=== PATIENT | female | born 1995 | race Caucasian/White ===

== ENCOUNTER 2021-04-04 14:33 | Outpatient (REF) | payer OTHER, SELFPAY ==
[2021-04-04 15:16] LABS: Glucose Urine UA NEG (NEG); Leukocyte Esterase Urine NEG (NEG); Nitrite Urine NEG (NEG); PH 6.5 (5.0-8.0); Specific Gravity - Urine <= 1.005 (1.005-1.025); Urine Blood NEG (NEG); Urine Ketones NEG (NEG); Urine Protein NEG (NEG-TRACE)
[2021-04-04 15:18] LABS: Appearance Urine CLEAR; Color Urine YELLOW
== END 2021-04-04 14:34 | disposition home or self-care (01) ==
LOC: HO.LAB 14:33
PROVIDERS: PCP Internal Medicine; Visit Provider Internal Medicine
DX: R30.0 Dysuria (principal)
CPT/HCPCS: 81003

== ENCOUNTER 2022-09-27 09:30 | Outpatient (REF) | payer OTHER, SELFPAY ==
[2022-09-27 11:52] LABS: Alanine Aminotransferase 20 U/L (0-31); Albumin Level 4.2 g/dL (3.5-5.0); Alkaline Phosphatase 46 U/L (39-117); Anion Gap 12 (12-20); Aspartate Amino Transferase 16 U/L (5-31); Bilirubin Total 0.6 mg/dL (0.0-1.0); Blood Urea Nitrogen 11 mg/dL (9-16); Calcium 9.5 mg/dL (8.4-10.2); Carbon Dioxide 25 mmol/L (22-29); Chloride 105 mmol/L (96-108); Cholesterol 158 mg/dL; Estimated Glomerular Filt Rate > 60; Glucose Fasting 77 mg/dL (60-99); HDL Cholesterol 46 mg/dL; LDL Cholesterol Calculated 92 mg/dl; Potassium 4.5 mmol/L (3.3-5.1); Sodium 137 mmol/L (135-145); Thyroid Stimulating Hormone 1.17 uIU/mL (0.32-4.0); Total Protein 6.4 g/dL (6.5-8.0); Triglycerides 100 mg/dL
== END 2022-09-27 09:31 | disposition home or self-care (01) ==
LOC: HO.LAB 09:30
PROVIDERS: PCP Internal Medicine; Visit Provider Internal Medicine
DX: Z00.00 Encounter for general adult medical examination without abnormal findings (principal); R53.83 Other fatigue; E78.5 Hyperlipidemia, unspecified; R30.0 Dysuria
CPT/HCPCS: 36415; 80053; 80061; 84443

== ENCOUNTER 2022-12-16 07:25 | Outpatient (REF) | payer OTHER, SELFPAY ==
[2022-12-16 07:59] LABS: Appearance Urine Cloudy; Color Urine Yellow; Glucose Urine UA Negative (Negative); Leukocyte Esterase Urine Moderate (2+) (Negative); Nitrite Urine Positive (Negative); PH 5.5 (5.0-9.0); UMIC TRIGGER UA YES; Urine Blood Large (3+) (Negative); Urine Ketones Negative (Negative); Urine Protein 100 (2+) mg/dL (Neg-Trace)
[2022-12-16 08:05] LABS: Bacteria Urine 4+ (None Seen); RBC Urine >20 /HPF (0-2); WBC Urine >50 /HPF (0-5)
== END 2022-12-16 07:26 | disposition home or self-care (01) ==
LOC: HO.LAB 07:25
PROVIDERS: PCP Internal Medicine; Visit Provider Internal Medicine
DX: R30.0 Dysuria (principal)
CPT/HCPCS: 81001

== ENCOUNTER 2023-07-11 10:39 | Outpatient (AMB) | payer OTHER, SELFPAY ==
--- NOTE | 2023-07-11 10:41 | A.OFFPC_ITS ---
Vital Signs 07/11/23 10:42 Height 5 ft 1 in Weight 111 lb BMI 21.0 BP 110/72 Blood Pressure Location Lt brachial Position Sitting Intake Visit Reasons: trouble eating dairy Intake Note: Patient here c/o trouble eating dairy Stone Derrickman And Rigger Required: No Accompanied by: Self / Same As Patient Allergies No Known Allergies Allergy (Verified 07/11/23 10:55) Medication List - Last Reconciled 07/11/23 by Stephanie Evans MD No Known Home Meds Tobacco use date assessed: 04/18/23 Dental Screening Dental Screen Date: 07/11/23 Did you have a dental visit in the last 12 months?: Yes Did you have a dental problem in the last 6 months where you did not have access to dental care?: No Was dental information given to patient?: Patient has dentist HPI HPI Comments History of Present Illness Details This is a 27-year-old female that complains of nausea, abdominal bloating and pain and occasionally diarrhea that happens when eating dairy products. This has relieved when stopping in dairy products. No fever. No other associated symptom. [facility] Medical History (Updated 07/11/23 @ 11:03 by Stephanie Evans MD) History of gestational diabetes Skin lesion Upper respiratory tract infection Surgical History History of foot surgery History of wisdom tooth extraction Family History Father Hypertension Mother In good health Maternal Grandfather Lung cancer Paternal Grandmother Ovarian cancer Diabetes Paternal Grandfather No problems noted. Maternal Grandmother Stroke Family/Other FH: mental illness Brother No problems noted. Brother No problems noted. Son No problems noted. Daughter No problems noted. Other Mental health problem Social History Housing: House Alcohol intake: never Patient Tobacco Use Status: Former Tobacco user Tobacco use type: Cigarette Cigarettes Per Day: 1 e-Cigarette/Vaping Use: Currently Using Second Hand Smoke Exposure: Yes service: No Current occupational status: unemployed Cognitive needs: No Hearing needs: No Vision needs: No Questionnaire Thrive Questionnaire Date Thrive assessed: 01/18/23 JOSE FRANCISCO-7 AMB Questionnaire JOSE FRANCISCO-7 Date JOSE FRANCISCO - 7 assessed: 04/18/23 Source: Developed by Drs. Fadi Miller, Colleen Grullon, [place] and colleagues, with an educational macarena from [employer]. Review of Systems Const All systems reviewed & are unremarkable except as noted in HPI and below Eyes Reports no additional complaints, Denies change in vision and Denies other visual disturbances Card Denies chest pain at rest, Denies chest pain with activity, Denies edema, Denies irregular heart rhythm, Denies claudication, Denies dyspnea, Denies dyspnea on exertion, Denies orthopnea, Denies paroxysmal nocturnal dyspnea and Denies slow heart rate Resp Denies cough, Denies dyspnea and Denies dyspnea on exertion GI Reports abdominal pain, Reports bloating, Denies change in bowel habits, Denies excessive flatus, Reports diarrhea, Reports nausea and Denies vomiting Denies urinary incontinence, Denies urinary hesitancy and Denies urinary urgency Musc Denies abnormal gait, Denies atrophy, Denies deformity and Denies limited range of motion Skin/Breast Denies bleeding lesions, Denies changing lesions and Denies rash Neuro Denies abnormal gait and Denies lack of coordination Physical exam (Primary Care) Vital Signs: Last Vital Signs BP 110/72 07/11/23 10:42 BMI result Body Mass Index 21.0 Tobacco/Smoking Status: Tobacco use Status Tobacco use date assessed 04/18/23 07/11/23 10:48 Patient Tobacco Use Status Former Tobacco user 07/11/23 10:48 Tobacco use type Cigarette 07/11/23 10:48 e-Cigarette/Vaping Use Currently Using 07/11/23 10:48 Thrive Assessment: Date of Thrive Assessment Date Thrive assessed 01/18/23 07/11/23 10:48 Eyes General: appearance normal, both eyes and all related structures Eyelids: Yes eyelids normal Conjunctivae: conjunctivae normal Neck Neck: Yes normal visual inspection and Yes supple Resp Effort & Inspection: normal respiratory effort Auscultation: clear to auscultation bilaterally Cardio Jugular venous distension: no JVD Rate: regular rate Rhythm: regular rhythm Heart sounds: S1 normal heart sound present and S2 normal heart sound present Extrem General: Yes full ROM Assessment and Plan Assessment & Plan (1) Lactose intolerance: Code(s): E73.9 - Lactose intolerance, unspecified Plan: Order stool ph and RAST. Orders: Orders Calprotectin, Fecal Today E73.9 - Lactose intolerance, unspecified pH stool Today E73.9 - Lactose intolerance, unspecified Rast Allergen Today T78.40XA - Allergy, unspecified, initial encounter Coding Level of Care Code Est Pt Level 3 (55714) Diagnoses Lactose intolerance E73.9 Time Spent (min) 19
[2023-07-11 10:42] VITALS: BP 110/72; BMI 21.0
== END 2023-07-11 11:07 | disposition home or self-care (01) ==
PROVIDERS: PCP Internal Medicine; Visit Provider Internal Medicine
DX: E73.9 Lactose intolerance, unspecified (principal)
CPT/HCPCS: 99213

== ENCOUNTER 2023-07-31 08:28 | Outpatient (REF) | payer OTHER, SELFPAY | END 2023-07-31 08:29 | disposition home or self-care (01) | LOC: HO.LAB 08:28 | PROVIDERS: PCP Internal Medicine; Visit Provider Internal Medicine | DX: T78.40XA Allergy, unspecified, initial encounter (principal) | CPT/HCPCS: 36415; 86003 ==

== ENCOUNTER 2023-10-15 08:29 | Outpatient (AMB) | payer OTHER, SELFPAY ==
--- NOTE | 2023-10-15 08:37 | A.OFFVIS_ITS ---
Intake Vital Signs 10/15/23 08:43 Height 5 ft 1 in Weight 108 lb BMI 20.4 BP 111/54 L Blood Pressure Location Lt brachial Position Right Lateral Pulse 71 Intake Visit Reasons: Change in Bowels Intake Note: Patient follow up for change of bowels. Patient cc: abdominal pain /both side, acid reflex, constipation on and off, and denies any other GI issues. Marketing Support Specialist Required: No Accompanied by: Self / Same As Patient Allergies No Known Allergies Allergy (Verified 10/15/23 08:36) Medication List - Last Reconciled 10/15/23 by Divine Butt PA-C No Known Home Meds HPI HPI Comments History of Present Illness Details A 28 y/o female with thinking for years she had a dairy allergy- she was getting period like cramps- she has loose stool , not diarrhea- - not everytime-but most time-she worries about having Crohn No family history of IBD Bloating/gas dietary modifications not beneficial She is stressed, a bit-she has 2 young children and a 17 y/o foster daughter- going well-however still stressful. Her appetite is good, she has always been thin, no nausea, vomiting, hematemesis, hematochezia fever or chills PFSH Medical History Skin lesion Upper respiratory tract infection History of gestational diabetes Surgical History History of foot surgery History of wisdom tooth extraction Family History Father Hypertension Mother In good health Maternal Grandfather Lung cancer Paternal Grandmother Ovarian cancer Diabetes Paternal Grandfather No problems noted. Maternal Grandmother Stroke Family/Other FH: mental illness Brother No problems noted. Brother No problems noted. Son No problems noted. Daughter No problems noted. Other Mental health problem Social History Housing: House Alcohol intake: never Patient Tobacco Use Status: Former Tobacco user Tobacco use type: Cigarette Cigarettes Per Day: 1 e-Cigarette/Vaping Use: Currently Using Second Hand Smoke Exposure: Yes service: No Current occupational status: unemployed Cognitive needs: No Hearing needs: No Vision needs: No Review of Systems Const All systems reviewed & are unremarkable except as noted in HPI and below Card Denies chest pain and Denies dyspnea Resp Denies dyspnea GI Reports bloating, Denies hematochezia and Reports loose stools Denies abnormal menses Physical Exam Vital Signs: Last Vital Signs Pulse 71 10/15/23 08:43 BP 111/54 L 10/15/23 08:43 BMI result Body Mass Index 20.4 Const General: cooperative, comfortable and no acute distress Nutritional Appearance: thin Orientation/consciousness: patient oriented x3 Limitations: no limitations Eyes Sclerae: sclerae normal Resp Effort & Inspection: normal respiratory effort and able to speak in complete sentences Auscultation: clear to auscultation bilaterally, no rales, no rhonchi and no wheezes Cardio Rate: regular rate Rhythm: regular rhythm Heart sounds: S1 normal heart sound present and S2 normal heart sound present Skin General skin exam: no rashes or lesions noted Neuro General: patient oriented x3 Extrem General: Yes full ROM Psych Appearance: grossly normal and well kempt Mental Status: mental status grossly normal Speech and movement: Normal speech and movement present and Clear speech present Affect: Anxious affect present Attitude: cooperative Thought process: Normal thought process present Thought content: Normal thought content present Assessment & Plan Assessment & Plan (1) Change in bowel habits: Comment: Very pleasant somewhat anxious 28-year-old Symptoms somewhat vague Will monitor and re-evaluate Code(s): R19.4 - Change in bowel habit (2) Bloating: Code(s): R14.0 - Abdominal distension (gaseous) Plan: FODMAP Simethicone (3) Chronic RLQ pain: Comment: Intermittent, vague, right lower quadrant pain Code(s): R10.31 - Right lower quadrant pain; G89.29 - Other chronic pain (4) History of kidney stones: Code(s): Z87.442 - Personal history of urinary calculi Plan Labs assess gluten markers, sed rate, ESR Stool sherine U/S Fodmap Simethicone Orders: Orders Calprotectin, Fecal Today R19.7 - Diarrhea, unspecified Endomysial IgA rflx Titer Today R19.4 - Change in bowel habit, T78.40XA - Allergy, unspecified, initial encounter Erythrocyte Sedimentation Rate Today R19.7 - Diarrhea, unspecified C Reactive Protein Today R19.4 - Change in bowel habit HCG Quantitative Today R14.0 - Abdominal distension (gaseous) US abdomen complete Today G89.29 - Other chronic pain, R10.31 - Right lower quadrant pain, R14.0 - Abdominal distension (gaseous), Z87.442 - Personal history of urinary calculi Complete Blood Count Auto Diff Today K52.9 - Noninfective gastroenteritis and c olitis, unspecified Comprehensive Met. Panel Today K58.9 - Irritable bowel syndrome without diarrhea Transglutaminase IgA Today R19.7 - Diarrhea, unspecified Thyroid Stimulating Hormone Today R19.8 - Other specified symptoms and signs involving the digestive system and abdomen Medications: New simethicone (Gas Relief (simethicone)) 125 mg PO TID-QID PRN 90 tabs 2RF abdominal distention Patient Instructions: She will monitor symptoms Labs assess gluten markers, sed rate, ESR Stool sherine- U/S-for further eval may be low yield however negative may be reassured Fodmap reviewed, Simethicone, likely be beneficial Encouraged to call with any questions or concerns Appreciate the opportunity assist in the care pleasant patient Will follow-up after the holidays Coding Level of Care Code New Pt Level 3 (68344) Diagnoses Change in bowel habits R19.4 Bloating R14.0 Chronic RLQ pain R10.31; G89.29 History of kidney stones Z87.442 Time Spent (min) 30
[2023-10-15 08:43] VITALS: BP 111/54; PULSE 71; BMI 20.4
== END 2023-10-15 09:24 | disposition home or self-care (01) ==
PROVIDERS: PCP Internal Medicine; Visit Provider Physician Assistant
DX: R19.4 Change in bowel habit (principal); R14.0 Abdominal distension (gaseous); R10.31 Right lower quadrant pain; G89.29 Other chronic pain; Z87.442 Personal history of urinary calculi
CPT/HCPCS: 99203

== ENCOUNTER → 2023-10-15 08:29 | Outpatient (BNVA) | payer OTHER, SELFPAY | PROVIDERS: PCP Internal Medicine; Visit Provider Physician Assistant ==

== ENCOUNTER 2023-10-22 11:36 | Outpatient (REF) | payer OTHER, SELFPAY ==
[2023-10-22 12:00] LABS: MANUAL DIFF FLAG NO
[2023-10-22 12:37] LABS: Basophils Absolute Auto 0.1 X10*3/uL (0.0-0.2); Basophils Percent Auto 0.8 % (0-2); Eosinophils Absolute Auto 0.1 X10*3/uL (0.0-0.4); Eosinophils Percent Auto 1.1 % (0-4); Hematocrit 36.8 % (37.0-47.0); Hemoglobin 13.1 g/dl (12.0-16.0); Imm Gran Abs Auto 0.01 X10*3/uL (0.00-0.03); Imm Gran Pct Auto 0.2 % (0.0-0.4); Lymphocytes Percent Auto 32.6 % (20-40); Mean Corpuscular HGB Conc 35.6 g/dl (31.0-35.0); Mean Corpuscular Hemoglobin 30.8 pg (27.0-33.0); Mean Corpuscular Volume 86.6 fL (80.0-98.0); Mean Platelet Volume 9.2 fL (9.4-12.3); Monocytes Absolute Auto 0.6 X10*3/uL (0.1-1.2); Monocytes Percent Auto 9.4 % (2-11); Neutrophils Absolute Auto 3.5 x10*3/uL (2.0-8.3); Neutrophils Percent Auto 55.9 % (45-73); Platelet Count 257 X10*3/uL (160-400); Red Blood Count 4.25 X10*6/uL (4.20-5.50); Red Cell Distribution Width 11.8 % (11.0-16.0); White Blood Count 6.3 X10*3/uL (4.8-10.8)
[2023-10-22 13:21] LABS: Alanine Aminotransferase 16 U/L (0-31); Albumin Level 4.4 g/dL (3.5-5.0); Alkaline Phosphatase 52 U/L (39-117); Anion Gap 11 (12-20); Aspartate Amino Transferase 17 U/L (5-31); Bilirubin Total 0.7 mg/dL (0.0-1.0); Blood Urea Nitrogen 15 mg/dL (9-16); C Reactive Protein < 0.04 mg/dL (< or = 0.50); Calcium 9.5 mg/dL (8.4-10.2); Carbon Dioxide 27 mmol/L (22-29); Chloride 104 mmol/L (96-108); Estimated Glomerular Filt Rate > 60; Glucose Random 91 mg/dL (60-115); Potassium 4.1 mmol/L (3.3-5.1); Sodium 138 mmol/L (135-145); Total Protein 6.9 g/dL (6.5-8.0)
[2023-10-22 13:23] LABS: Erythrocyte Sedimentation Rate 5 MM/HR (0-20)
[2023-10-22 13:35] LABS: HCG Quantitative < 2 mIU/mL; Thyroid Stimulating Hormone 0.67 uIU/mL (0.32-4.0)
[2023-10-24 15:49] LABS: Transglutaminase IgA <1.0 U/mL
[2023-10-25 13:58] LABS: Endomysial IgA Antibody Negative (Negative)
[2023-10-28 19:24] LABS: Calprotectin, Fecal 8 mcg/g
== END 2023-10-22 11:37 | disposition home or self-care (01) ==
LOC: HO.LAB 11:36
PROVIDERS: PCP Internal Medicine; Visit Provider Physician Assistant
DX: R19.4 Change in bowel habit (principal); T78.40XA Allergy, unspecified, initial encounter; R14.0 Abdominal distension (gaseous); R19.8 Other specified symptoms and signs involving the digestive system and abdomen; K52.9 Noninfective gastroenteritis and colitis, unspecified
CPT/HCPCS: 36415; 80053; 83993; 84443; 84702; 85025; 85652; 86140; 86231; 86364

== ENCOUNTER 2023-11-02 23:42 | Emergency (ER) | payer OTHER, SELFPAY ==
--- NOTE | ~2023-11-02 | CT_ITS ---
EXAMINATION: CT ABDOMEN AND PELVIS WITHOUT CONTRAST CLINICAL INFORMATION: Left sided pain with history of stones. COMPARISON: None available. TECHNIQUE: Multidetector volumetric imaging was performed from the superior aspect of the liver through the pubic symphysis. Sagittal and coronal reformatted images were obtained on the technologist's workstation. This CT examination was performed using dose optimization techniques as appropriate, variously including the following: *Automated exposure control *Adjustment of mA and/or kV according to patient size (this includes techniques or standardized protocols for targeted exams where dose is matched to indication/reason for exam; i.e. extremities or head) *Use of iterative reconstruction technique DLP: 329 mGy-cm FINDINGS: LUNG BASES: The visualized lung bases are unremarkable. LIVER, GALLBLADDER, AND BILIARY TREE: The liver is normal in size, shape, and attenuation. No focal hepatic lesion or biliary ductal dilatation is present. The gallbladder is unremarkable with no evidence of radiopaque gallstones, gallbladder wall thickening, or obvious pericholecystic inflammatory changes. PANCREAS: Unremarkable. SPLEEN: Unremarkable. ADRENAL GLANDS: Unremarkable. KIDNEYS AND URETERS: The kidneys are normal in size, shape, and attenuation. No hydronephrosis, hydroureter, or calculi seen. No perinephric stranding. BLADDER: Unremarkable. GASTROINTESTINAL TRACT: No intestinal obstruction or inflammation. No evidence of appendicitis. ABDOMINAL WALL: No significant hernia is appreciated. LYMPH NODES: Normal. VASCULAR: Unremarkable. PELVIC VISCERA: Uterus and adnexa unremarkable. Physiologic follicle in the left ovary. OSSEOUS STRUCTURES: Unremarkable. CT/CT abdomen pelvis wo IV con IMPRESSION: * No urinary calculi or hydronephrosis. * No acute findings within the abdomen or pelvis to explain the patient's symptomatology. Fleischner guidelines were followed.
[2023-11-03] VITALS: BP 132/46; PULSE 74; RESP 16; O2SAT 100; BMI 21.7
[2023-11-03 00:10] VITALS: TEMP 36.9
--- NOTE | 2023-11-03 00:11 | PC.NURSE ---
pt declined blood work at this time
--- NOTE | 2023-11-03 00:27 | ED.ABDPAIN ---
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 had history of ovarian cyst and kidney stone in the past complaining of worsening of the pain after intercourse tonight pain is mostly upper abdomen no nausea no vomiting no fever no urinary symptoms patient almost passed out because of the pain no vaginal bleed Related Data Previous Rx's Medication Instructions Recorded simethicone 125 mg chewable tablet 125 mg PO TID-QID PRN abdominal 10/15/23 (Gas Relief (simethicone)) distention #90 tabs dicyclomine 20 mg tablet 20 mg PO Q8-10H PRN abdominal 11/03/23 pain #20 tabs ondansetron 4 mg disintegrating 4 mg PO Q8H PRN nausea and 11/03/23 tablet vomiting #14 tabs Allergies Allergy/AdvReac Type Severity Reaction Status Date / Time No Known Allergies Allergy Verified 10/15/23 08:36 Review of Systems Review of Systems Yes all other systems are reviewed and are negative PMF Past Medical History Medical History Skin lesion Upper respiratory tract infection History of gestational diabetes Surgical History History of foot surgery History of wisdom tooth extraction Family History Family History Father Hypertension Mother In good health Maternal Grandfather Lung cancer Paternal Grandmother Ovarian cancer Diabetes Paternal Grandfather No problems noted. Maternal Grandmother Stroke Family/Other FH: mental illness Brother No problems noted. Brother No problems noted. Son No problems noted. Daughter No problems noted. Other Mental health problem Social History Social History Housing: House Alcohol intake: never Patient Tobacco Use Status: Former Tobacco user Tobacco use type: Cigarette Cigarettes Per Day: 1 Smoked in Last 30 Days: No e-Cigarette/Vaping Use: Currently Using Second Hand Smoke Exposure: Yes Use of substances other than those prescribed or required for medical reasons: No Substance Use Type: Marijuana Advance Directives: No Advance Directives Information Provided: No Patient : No service: No Current occupational status: unemployed Cognitive needs: No Hearing needs: No Vision needs: No Physical Exam ED Vital Signs: Vital Signs - 24 hr 11/03/23 00:00 11/03/23 00:10 Temperature 98.5 F Pulse Rate 74 Respiratory Rate 16 Blood Pressure 132/46 L Pulse Oximetry 100 Oxygen Delivery Method Room Air BMI result Body Mass Index 21.7 Appearance: Alert. Oriented X3. No acute distress. Eyes: No pallor or icterus ENT: Pharynx normal. Oral Mucosa moist Neck: Normal inspection. Neck supple. CVS: Normal heart rate and rhythm. Pulses normal. Respiratory: No respiratory distress. Equal air entry bilateral, no wheezing/rales/rhonchi Abdomen: Soft , tenderness mid abdomen no rebound tenderness or guarding. Bowel sounds are present, no mass palpable, no CVA tenderness Skin: Skin warm and dry. Normal skin color. Normal skin turgor. Neuro: Oriented X 3. Medical Decision Making Medical Decision Making [facility] Narrative: Patient with chronic pain likely IBS S patient is most severe pain with history of kidney stone will do a CT scan - I received sign-out from Dr. Bethea, CT scan does not show any acute abnormalities., No kidney stone - patient receive an additional dose of antiemetics, Compazine Differential Diagnosis Differential Diagnoses: The differential diagnosis associated with the presentation includes IBS/gallstones/kidney stone/ovarian cyst Admission/Observation Consideration of admission/observation: Escalation of care including admission/observation considered Lab Data [facility] Lab Attestation statement: I reviewed the patient's lab results. 11/03/23 00:50 11/03/23 00:50 Labs: Lab Results 11/03/23 Range/Units 00:50 WBC 8.3 (4.8-10.8) X10*3/uL RBC 4.14 L (4.20-5.50) X10*6/uL Hgb 12.5 (12.0-16.0) g/dl Hct 36.0 L (37.0-47.0) % MCV 87.0 (80.0-98.0) fL MCH 30.2 (27.0-33.0) pg MCHC 34.7 (31.0-35.0) g/dl RDW 11.7 (11.0-16.0) % Plt Count 193 (160-400) X10*3/uL MPV 9.3 L (9.4-12.3) fL Immature Gran % (Auto) 0.2 (0.0-0.4) % Neut % (Auto) 66.9 (45-73) % Lymph % (Auto) 23.3 (20-40) % Ramsey % (Auto) 7.4 (2-11) % Eos % (Auto) 1.5 (0-4) % Baso % (Auto) 0.7 (0-2) % Lymph # (Auto) 1.9 (1.2-4.9) X10*3/uL Ramsey # (Auto) 0.6 (0.1-1.2) X10*3/uL Eos # (Auto) 0.1 (0.0-0.4) X10*3/uL Baso # (Auto) 0.1 (0.0-0.2) X10*3/uL Abs Immat Gran (auto) 0.02 (0.00-0.03) X10*3/uL Absolute Neuts (auto) 5.5 (2.0-8.3) x10*3/uL Absolute Nucleated RBC 0.000 (0.0-0.012) X10*3/uL Nucleated RBC % (auto) 0.0 (0.0-0.2) /100WBC Sodium 138 (135-145) mmol/L Potassium 4.1 (3.3-5.1) mmol/L Chloride 107 (96-108) mmol/L Carbon Dioxide 27 (22-29) mmol/L Anion Gap 8 L (12-20) BUN 12 (9-16) mg/dL Creatinine 0.75 (0.5-1.4) mg/dL Estim Creat Clear Calc 82.7 Estimated GFR > 60 Random Glucose 102 (60-115) mg/dL Calcium 9.1 (8.4-10.2) mg/dL Total Bilirubin 0.4 (0.0-1.0) mg/dL AST 17 (5-31) U/L ALT 12 (0-31) U/L Alkaline Phosphatase 49 (39-117) U/L Total Protein 6.6 (6.5-8.0) g/dL Albumin 4.3 (3.5-5.0) g/dL Lipase 27 (8-78) U/L Urine Color Yellow Urine Appearance Clear Urine pH 7.0 (5.0-9.0) Ur Specific Homer 1.015 (1.005-1.025) Urine Protein Negative (Neg-Trace) mg/dL Urine Glucose (UA) Negative (Negative) mg/dL Urine Ketones Negative (Negative) mg/dL Urine Blood Negative (Negative) Urine Nitrite Negative (Negative) Ur Leukocyte Esterase Negative (Negative) Urine Test NEGATIVE (NEGATIVE) Radiology Impression Discussion of test interpretation with radiology: I have reviewed the radiologist's reading. Radiologist Impression: FINDINGS: LUNG BASES: The visualized lung bases are unremarkable. LIVER, GALLBLADDER, AND BILIARY TREE: The liver is normal in size, shape, and attenuation. No focal hepatic lesion or biliary ductal dilatation is present. The gallbladder is unremarkable with no evidence of radiopaque gallstones, gallbladder wall thickening, or obvious pericholecystic inflammatory changes. PANCREAS: Unremarkable. SPLEEN: Unremarkable. ADRENAL GLANDS: Unremarkable. KIDNEYS AND URETERS: The kidneys are normal in size, shape, and attenuation. No hydronephrosis, hydroureter, or calculi seen. No perinephric stranding. BLADDER: Unremarkable. GASTROINTESTINAL TRACT: No intestinal obstruction or inflammation. No evidence of appendicitis. ABDOMINAL WALL: No significant hernia is appreciated. LYMPH NODES: Normal. VASCULAR: Unremarkable. PELVIC VISCERA: Uterus and adnexa unremarkable. Physiologic follicle in the left ovary. OSSEOUS STRUCTURES: Unremarkable. CT/CT abdomen pelvis wo IV con IMPRESSION: * No urinary calculi or hydronephrosis. * No acute findings within the abdomen or pelvis to explain the patient's symptomatology. Fleischner guidelines were followed. Medications Administered Discontinued Medications Generic Name Dose Route Start Last Admin Trade Name Freq PRN Reason Stop Dose Admin Dicyclomine HCl 20 mg 11/03/23 00:35 11/03/23 00:49 Dicyclomine Hcl 10 Mg Capsule PO 11/03/23 00:36 20 mg ONCE ONE Administration Ondansetron HCl 4 mg 11/03/23 01:50 11/03/23 02:21 Ondansetron Odt 4 Mg Tab.Rapdis TRANSLINGU 11/03/23 01:51 4 mg ONCE ONE Administration Discharge Plan Discharge Clinical Impression: Irritable bowel syndrome Patient Disposition: Home, Self-Care Instructions: Irritable Bowel Syndrome (ED) Additional Instructions: Likely you have IBS Take dicyclomine 1 tablet every 8 hours as needed for pain Follow-up with gastroenterology Prescriptions: New dicyclomine 20 mg tablet 20 mg PO Q8-10H PRN (Reason: abdominal pain) Qty: 20 0RF ondansetron 4 mg tablet,disintegrating 4 mg PO Q8H PRN (Reason: nausea and vomiting) Qty: 14 0RF No Action simethicone [Gas Relief (simethicone)] 125 mg tablet,chewable 125 mg PO TID-QID PRN (Reason: abdominal distention) Qty: 90 2RF
[2023-11-03] MEDS: Dicyclomine HCl 10 MG CAPSULE 20 MG PO (00:49)
[2023-11-03 00:55] LABS: Basophils Absolute Auto 0.1 X10*3/uL (0.0-0.2); Basophils Percent Auto 0.7 % (0-2); Eosinophils Absolute Auto 0.1 X10*3/uL (0.0-0.4); Eosinophils Percent Auto 1.5 % (0-4); Hemoglobin 12.5 g/dl (12.0-16.0); Imm Gran Abs Auto 0.02 X10*3/uL (0.00-0.03); Imm Gran Pct Auto 0.2 % (0.0-0.4); Lymphocytes Absolute Auto 1.9 X10*3/uL (1.2-4.9); Lymphocytes Percent Auto 23.3 % (20-40); MANUAL DIFF FLAG NO; Mean Corpuscular HGB Conc 34.7 g/dl (31.0-35.0); Mean Corpuscular Hemoglobin 30.2 pg (27.0-33.0); Mean Platelet Volume 9.3 fL (9.4-12.3); Monocytes Absolute Auto 0.6 X10*3/uL (0.1-1.2); Monocytes Percent Auto 7.4 % (2-11); Neutrophils Absolute Auto 5.5 x10*3/uL (2.0-8.3); Neutrophils Percent Auto 66.9 % (45-73); Platelet Count 193 X10*3/uL (160-400); Red Blood Count 4.14 X10*6/uL (4.20-5.50); Red Cell Distribution Width 11.7 % (11.0-16.0); White Blood Count 8.3 X10*3/uL (4.8-10.8)
[2023-11-03 00:57] LABS: Appearance Urine Clear; Color Urine Yellow; Glucose Urine UA Negative (Negative); Leukocyte Esterase Urine Negative (Negative); Nitrite Urine Negative (Negative); Specific Gravity - Urine 1.015 (1.005-1.025); Urine Blood Negative (Negative); Urine Ketones Negative (Negative); Urine Protein Negative (Neg-Trace)
[2023-11-03 00:58] LABS: UPreg QC Valid YES; Urine Pregnancy NEGATIVE (NEGATIVE)
[2023-11-03 01:10] LABS: Alanine Aminotransferase 12 U/L (0-31); Albumin Level 4.3 g/dL (3.5-5.0); Alkaline Phosphatase 49 U/L (39-117); Anion Gap 8 (12-20); Aspartate Amino Transferase 17 U/L (5-31); Bilirubin Total 0.4 mg/dL (0.0-1.0); Blood Urea Nitrogen 12 mg/dL (9-16); Calcium 9.1 mg/dL (8.4-10.2); Carbon Dioxide 27 mmol/L (22-29); Chloride 107 mmol/L (96-108); Creatinine Clr Calc Pharmacy 82.7; Estimated Glomerular Filt Rate > 60; Glucose Random 102 mg/dL (60-115); Lipase 27 U/L (8-78); Potassium 4.1 mmol/L (3.3-5.1); Sodium 138 mmol/L (135-145); Total Protein 6.6 g/dL (6.5-8.0)
[2023-11-03] MEDS: Ondansetron ODT 4 MG TAB.RAPDIS TRANSLINGU (02:21)
[2023-11-03 03:36] VITALS: BP 114/49; PULSE 65; RESP 12; O2SAT 99
== END 2023-11-03 03:41 | disposition home or self-care (01) ==
PROVIDERS: Emergency Provider Internal Medicine; PCP Internal Medicine
DX: K58.9 Irritable bowel syndrome, unspecified (principal); Z87.442 Personal history of urinary calculi
CPT/HCPCS: 36415; 74176; 80053; 81003; 81025; 83690; 85025; 99284

== ENCOUNTER 2023-11-21 08:34 | Outpatient (REF) | payer OTHER, SELFPAY ==
--- NOTE | ~2023-11-21 | US_ITS ---
EXAMINATION: US ABDOMEN COMPLETE CLINICAL INFORMATION: Abdominal distention (gaseous). COMPARISON: CT abdomen and pelvis 11/03/2023. TECHNIQUE: Real-time imaging of the abdominal viscera. FINDINGS: PANCREAS: Normal head and body, the tail is partly obscured by bowel gas. ABDOMINAL AORTA: The proximal, mid, and distal segments are normal in caliber. INFERIOR VENA CAVA: Visualized portions are normal. LIVER: Normal. The liver is normal in size. The liver contour is normal. Parenchymal echogenicity is normal. No focal hepatic lesion. There is no intrahepatic biliary duct dilatation seen. GALLBLADDER: Normal. The gallbladder is physiologically distended without evidence of stones, sludge, polyps, wall thickening or pericholecystic fluid. COMMON BILE DUCT: Normal in caliber measuring 0.3 cm in diameter. RIGHT KIDNEY: Normal. No hydronephrosis. No renal calculi or focal parenchymal lesions. The kidney measures 9.6 cm in maximum dimension. LEFT KIDNEY: Normal. No hydronephrosis. No renal calculi or focal parenchymal lesions. The kidney measures 8.9 cm in maximum dimension. SPLEEN: Normal. The spleen measures 8.8 cm in maximum dimension. FREE FLUID: None. US/US abdomen complete IMPRESSION: No abnormality demonstrated.
== END 2023-11-21 08:35 | disposition home or self-care (01) ==
LOC: HO.US 08:34
PROVIDERS: PCP Internal Medicine; Visit Provider Physician Assistant
DX: R10.31 Right lower quadrant pain (principal); R14.0 Abdominal distension (gaseous); G89.29 Other chronic pain; Z87.442 Personal history of urinary calculi
CPT/HCPCS: 76700

== ENCOUNTER 2023-11-26 09:02 | Outpatient (AMB) | payer OTHER, SELFPAY ==
--- NOTE | 2023-11-26 09:04 | MHC.OFFVIS ---
Intake Vital Signs 11/26/23 09:06 Height 5 ft 1 in Weight 105 lb 13.15 oz BMI 20.0 BP 116/88 Blood Pressure Location Lt brachial Position Sitting Pulse 91 Intake Visit Reasons: follow up Intake Note: Sierra presents in the office as a follow up. CC: Was seen in our ED a little bit ago - around emre time. She states that it was about a week before emre. She states since she was seen in the ED she was told that she was having IBS symptoms. Abdominal pains and that day she had ice cream and [employer]. She had all sorts of foods she did not know that would mess with her stomach. She states that after intercourse she was having severe pains in her right side of her abdomen. She passed out for a few seconds and went to ED. [employer] Required: No Allergies No Known Allergies Allergy (Verified 11/26/23 09:06) Medication List - Last Reconciled 11/26/23 by Divine Butt PA-C dicyclomine 20 mg PO Q8-10H PRN ondansetron 4 mg PO Q8H PRN HPI HPI Comments History of Present Illness Details A 28 y/o female follows up after going to ED end of October with abdominal pain that worsened after intercourse. She has a history of ovarian cysts.she said she passed out- she did however eat at [employer] prior to abdominal pain She CT and U/S - no findings She has anxiety- She says that she does not eat much, she has a [id number] mom she does not work outside the home She is made dietary modifications as seem to have been of good benefit. She has not had any further abdominal discomfort or bloating etc She had labs-reviewed She does admit to anxiety, She has no nausea, vomiting, hematemesis, hematochezia fever or chills No chest pain, shortness of breath [facility] Medical History (Updated 11/26/23 @ 12:36 by Divine Butt PA-C) Skin lesion Upper respiratory tract infection History of gestational diabetes Surgical History History of foot surgery History of wisdom tooth extraction Family History Father Hypertension Mother In good health Maternal Grandfather Lung cancer Paternal Grandmother Ovarian cancer Diabetes Paternal Grandfather No problems noted. Maternal Grandmother Stroke Family/Other FH: mental illness Brother No problems noted. Brother No problems noted. Son No problems noted. Daughter No problems noted. Other Mental health problem Social History Housing: House Alcohol intake: never Patient Tobacco Use Status: Former Tobacco user Tobacco use type: Cigarette Cigarettes Per Day: 1 e-Cigarette/Vaping Use: Currently Using Second Hand Smoke Exposure: Yes Substance Use Type: Marijuana service: No Current occupational status: unemployed Cognitive needs: No Hearing needs: No Vision needs: No Review of Systems Const All systems reviewed & are unremarkable except as noted in HPI and below Card Denies chest pain and Denies dyspnea Resp Denies dyspnea GI Denies abdominal pain, Denies bloating, Denies nausea and Denies vomiting Psych Reports anxiety Physical Exam Vital Signs: Last Vital Signs Pulse 91 11/26/23 09:06 BP 116/88 11/26/23 09:06 BMI result Body Mass Index 20.0 Const General: cooperative, comfortable, no acute distress and anxious Nutritional Appearance: thin Orientation/consciousness: patient oriented x3 Limitations: no limitations Eyes Sclerae: sclerae normal Resp Effort & Inspection: normal respiratory effort and able to speak in complete sentences Auscultation: clear to auscultation bilaterally, no crackles, no rales and no rhonchi Cardio Rhythm: regular rhythm Heart sounds: S1 normal heart sound present and S2 normal heart sound present GI Palpation (GI): Soft to palpation and nontender Auscultation: normal bowel sounds Skin General skin exam: no rashes or lesions noted Neuro General: patient oriented x3 Extrem General: Yes full ROM Psych Appearance: grossly normal and well kempt Mental Status: mental status grossly normal Speech and movement: Pressured speech present Affect: Anxious affect present Attitude: cooperative Thought process: Racing thoughts present Results Reviewed Results Reviewed: CT/CT abdomen pelvis wo IV con IMPRESSION: * No urinary calculi or hydronephrosis. * No acute findings within the abdomen or pelvis to explain the patient's symptomatology. US/US abdomen complete IMPRESSION: No abnormality demonstrated. Lab Stool calprotectin normal Assessment & Plan Assessment & Plan (1) Change in bowel habits: Comment: Very pleasant somewhat anxious 28-year-old Symptoms somewhat vague Will monitor and re-evaluate Code(s): R19.4 - Change in bowel habit (2) Bloating: Comment: Resolved Code(s): R14.0 - Abdominal distension (gaseous) Plan: Identify culprits and avoid (3) Anxiety: Comment: Discussed anxiety-hesitant to any intervention discussed further following with PCP re therapy or other intervention Code(s): F41.9 - Anxiety disorder, unspecified Plan: Follow-up PCP may likely benefit from further discussion of anxiety Plan Monitor symptoms If recur will follow-up Continue dietary modifications avoid culprits Follow-up PCP Re anxiety Medications: Discontinued simethicone (Gas Relief (simethicone)) Discontinued Reason: Patient no longer taking 125 mg PO TID-QID PRN 90 tabs 2RF abdominal distention Patient Instructions: Very pleasant, anxious 28-year-old female follows up with abdominal pain, bloating that seems to have pretty much resolved. She would made dietary modifications with good benefit She will continue to Monitor for any change in symptoms If recur will follow-up Continue dietary modifications avoid culprits Follow-up PCP Re anxiety Encouraged to call with any questions or concerns Coding Level of Care Code Est Pt Level 3 (68362) Diagnoses Change in bowel habits R19.4 Bloating R14.0 Anxiety F41.9 Time Spent (min) 30
[2023-11-26 09:06] VITALS: BP 116/88; PULSE 91
== END 2023-11-26 10:14 | disposition home or self-care (01) ==
PROVIDERS: PCP Internal Medicine; Visit Provider Physician Assistant
DX: R19.4 Change in bowel habit (principal); R14.0 Abdominal distension (gaseous); F41.9 Anxiety disorder, unspecified
CPT/HCPCS: 99213

== ENCOUNTER → 2023-11-26 09:02 | Outpatient (BNVA) | payer OTHER, SELFPAY | PROVIDERS: PCP Internal Medicine; Visit Provider Physician Assistant ==

== ENCOUNTER 2024-01-24 08:15 | Outpatient (AMB) | payer OTHER, SELFPAY ==
[2024-01-24 08:41] VITALS: BP 116/72; PULSE 83; TEMP 36.5; O2SAT 97; BMI 21.0
--- NOTE | 2024-01-24 08:41 | AM.OFFWIN_ITS ---
Intake Vital Signs 01/24/24 08:41 Height 5 ft 1 in Weight 111 lb BMI 21.0 BP 116/72 Blood Pressure Location Lt brachial Position Sitting Pulse 83 Pulse Source Pulse Oximeter Temp 97.7 F Temp Source Temporal Artery Scan Pulse Oximetry (%) 97 Oxygen Delivery Method Room Air Intake Visit Reasons: EP body rash 1 WK Intake Note: pt is here today for body rash started 1 week ago Patient Tobacco Use Status: Former Tobacco user Allergies No Known Allergies Allergy (Verified 01/24/24 08:41) Do you need a note to return to daycare/school/sports/work: No HPI EP body rash 1 WK HPI Details This is a 28 year old female patient who presents with a body rash for the last week. She states that she cleaned her shower and used a spray chemical which may have gotten onto her loofah scrubber. She used this scrubber the following day and then developed a red rash over all areas she scrubbed, including chest, arms, abdomen, legs, and pubic region. She states it is itchy. She has been using cetirizine, benadryl, and topical hydrocortisone. [facility] Medical History Skin lesion Upper respiratory tract infection History of gestational diabetes Surgical History History of foot surgery History of wisdom tooth extraction Family History Father Hypertension Mother In good health Maternal Grandfather Lung cancer Paternal Grandmother Ovarian cancer Diabetes Paternal Grandfather No problems noted. Maternal Grandmother Stroke Family/Other FH: mental illness Brother No problems noted. Brother No problems noted. Son No problems noted. Daughter No problems noted. Other Mental health problem Social History Housing: House Alcohol intake: never Patient Tobacco Use Status: Former Tobacco user Tobacco use type: Cigarette Cigarettes Per Day: 1 e-Cigarette/Vaping Use: Currently Using Second Hand Smoke Exposure: Yes Substance Use Type: Marijuana service: No Current occupational status: unemployed Cognitive needs: No Hearing needs: No Vision needs: No Review of Systems Const All systems reviewed & are unremarkable except as noted in HPI and below Physical Exam Vital Signs: Last Vital Signs Temp 97.7 F 01/24/24 08:41 Pulse 83 01/24/24 08:41 BP 116/72 01/24/24 08:41 Pulse Ox 97 01/24/24 08:41 Oxygen Delivery Method Room Air 01/24/24 08:41 BMI result Body Mass Index 21.0 Const General: cooperative, healthy appearing and no acute distress Resp Effort & Inspection: normal respiratory effort Auscultation: clear to auscultation bilaterally Skin Other: Erythematous rash, primarily round macules, some with crusting - locations: arms, abdomen, chest, legs, pubic region Extrem General: Yes no clubbing, cyanosis or edema Psych Appearance: grossly normal Mental Status: mental status grossly normal Speech and movement: Normal speech and movement present Assessment & Plan Assessment & Plan (1) Irritant contact dermatitis: Code(s): L24.9 - Irritant contact dermatitis, unspecified cause Qualifiers: Contact dermatitis trigger: other chemical product Qualified Code(s): L24.5 - Irritant contact dermatitis due to other chemical products Plan: Will start on PO prednisone given extent and locations of contact derm rash. We reviewed use, indications, possible s/e of medication. She can continue to use Benadryl at HS as needed. Advised to throw out contaminated scrubber and use mild soap. If she does not improve with treatment or if rash worsens, she should return to the clinic for further evaluation. She verbalizes understanding and agrees to plan. Medications: New prednisone 20 mg PO BID 10 tabs 0RF 5 days L24.5 - Irritant contact dermatitis due to other chemical products Coding Level of Care Code Est Pt Level 3 (24387) Diagnoses Irritant contact dermatitis due to other chemical products L24.5 Contact dermatitis trigger: other chemical product
== END 2024-01-24 09:15 | disposition home or self-care (01) ==
PROVIDERS: PCP Internal Medicine; Visit Provider Nurse Practitioner Family
DX: L24.5 Irritant contact dermatitis due to other chemical products (principal)
CPT/HCPCS: 99213

== ENCOUNTER 2024-01-29 08:14 | Outpatient (AMB) | payer OTHER, SELFPAY ==
[2024-01-29 08:31] VITALS: BP 112/70; PULSE 65; TEMP 36.9; O2SAT 99; BMI 21.2
--- NOTE | 2024-01-29 08:31 | AM.OFFWIN_ITS ---
Intake Vital Signs 01/29/24 08:31 Height 5 ft 1 in Weight 112 lb BMI 21.2 BP 112/70 Blood Pressure Location Lt brachial Position Sitting Pulse 65 Pulse Source Pulse Oximeter Temp 98.4 F Temp Source Temporal Artery Scan Pulse Oximetry (%) 99 Oxygen Delivery Method Room Air Intake Visit Reasons: EP rash seen in [place] on 01/24/24 Intake Note: pt is here today for rash started on 01/23 Patient Tobacco Use Status: Former Tobacco user Allergies No Known Allergies Allergy (Verified 01/29/24 08:48) Medication List - Last Reconciled 01/29/24 by Perico Rolle MD cetirizine (Allergy Relief (cetirizine)) 10 mg PO DAILY PRN 90 days dicyclomine 20 mg PO Q8-10H PRN 30 days ondansetron 4 mg PO Q8H PRN Do you need a note to return to daycare/school/sports/work: No HPI EP rash seen in [place] on 01/24/24 HPI Details 28-year-old female presents to the [facility] for a sick visit. She was seen in this clinic last week with a rash in treated for irritant dermatitis. Patient was given prednisone and she is partially responded. She reports the rash is fading but has not completely disappeared [facility] Medical History Skin lesion Upper respiratory tract infection History of gestational diabetes Surgical History History of foot surgery History of wisdom tooth extraction Family History Father Hypertension Mother In good health Maternal Grandfather Lung cancer Paternal Grandmother Ovarian cancer Diabetes Paternal Grandfather No problems noted. Maternal Grandmother Stroke Family/Other FH: mental illness Brother No problems noted. Brother No problems noted. Son No problems noted. Daughter No problems noted. Other Mental health problem Social History Housing: House Alcohol intake: never Patient Tobacco Use Status: Former Tobacco user Tobacco use type: Cigarette Cigarettes Per Day: 1 e-Cigarette/Vaping Use: Currently Using Second Hand Smoke Exposure: Yes Substance Use Type: Marijuana service: No Current occupational status: unemployed Cognitive needs: No Hearing needs: No Vision needs: No Physical Exam Vital Signs: Last Vital Signs Temp 98.4 F 01/29/24 08:31 Pulse 65 01/29/24 08:31 BP 112/70 01/29/24 08:31 Pulse Ox 99 01/29/24 08:31 Oxygen Delivery Method Room Air 01/29/24 08:31 BMI result Body Mass Index 21.2 Skin Other: Scattered, discrete, well-circumscribed, erythematous papules with minimal overlying scales. Lesions over her arms forearms and back. lesions in the suprapubic area. Assessment & Plan Assessment & Plan (1) Rash: Code(s): R21 - Rash and other nonspecific skin eruption Plan: I suspect this rash could be due to psoriasis. Prednisone 60 mg taper given. She would definitely benefit from a skin biopsy. Her PCP has been made aware of the same Coding Level of Care Code Est Pt Level 3 (57157) Diagnoses Rash R21
== END 2024-01-29 09:21 | disposition home or self-care (01) ==
PROVIDERS: PCP Internal Medicine; Visit Provider Internal Medicine
DX: R21 Rash and other nonspecific skin eruption (principal)
CPT/HCPCS: 99213

== ENCOUNTER 2024-02-27 08:12 | Outpatient (AMB) | payer OTHER, SELFPAY ==
[2024-02-27 08:30] VITALS: BP 112/70; PULSE 78; TEMP 36.5; O2SAT 98; BMI 21.7
--- NOTE | 2024-02-27 08:30 | AM.OFFWIN_ITS ---
Intake Vital Signs 02/27/24 08:30 Height 5 ft 1 in Weight 115 lb BMI 21.7 BP 112/70 Blood Pressure Location Lt brachial Position Sitting Pulse 78 Pulse Source Pulse Oximeter Temp 97.7 F Temp Source Temporal Artery Scan Pulse Oximetry (%) 98 Oxygen Delivery Method Room Air Intake Visit Reasons: EP RT ear Intake Note: pt is here today for rt ear started sunday Patient Tobacco Use Status: Former Tobacco user Allergies No Known Allergies Allergy (Verified 02/27/24 08:36) Do you need a note to return to daycare/school/sports/work: No HPI EP RT ear HPI Details This is a 28 year old female patient who presents today with right ear pain x3 days. Reports her kids have been sick recently, and she also has had some mild congestion. She developed right ear pressure/blocked sensation Sunday, and woke up today with severe pain on that side. Denies any fever. [facility], [facility] Medical History Skin lesion Upper respiratory tract infection History of gestational diabetes Surgical History History of foot surgery History of wisdom tooth extraction Family History Father Hypertension Mother In good health Maternal Grandfather Lung cancer Paternal Grandmother Ovarian cancer Diabetes Paternal Grandfather No problems noted. Maternal Grandmother Stroke Family/Other FH: mental illness Brother No problems noted. Brother No problems noted. Son No problems noted. Daughter No problems noted. Other Mental health problem Social History Housing: House Alcohol intake: never Patient Tobacco Use Status: Former Tobacco user Tobacco use type: Cigarette Cigarettes Per Day: 1 e-Cigarette/Vaping Use: Currently Using Second Hand Smoke Exposure: Yes Substance Use Type: Marijuana service: No Current occupational status: unemployed Cognitive needs: No Hearing needs: No Vision needs: No Review of Systems Const All systems reviewed & are unremarkable except as noted in HPI and below Physical Exam Vital Signs: BMI result Body Mass Index 21.7 Const General: cooperative and no acute distress HEENT Head: Yes normal to inspection Ears: hearing grossly normal bilaterally, external ears normal, TM abnormal (right TM erythematous, purulent effusion) and unable to visualize TM (cerumen) on the left General nose exam: Normal external nose present Throat: Yes posterior oropharynx normal Neck Neck: Yes no lymphadenopathy Resp Effort & Inspection: normal respiratory effort Extrem General: Yes no clubbing, cyanosis or edema Psych Appearance: grossly normal Mental Status: mental status grossly normal Speech and movement: Normal speech and movement present Assessment & Plan Assessment & Plan (1) Right otitis media with effusion: Code(s): H65.91 - Unspecified nonsuppurative otitis media, right ear Plan: Patient recently stopped amoxicillin for a skin infection. Has done well in previous years on azithromycin. Will start her on this and advised she try a decongestant. We reviewed indications, use, possible s/e of abx. May use Tylenol/Motrin as needed for pain. Advised continued use of debrox drops for left ear due to excessive cerumen. If she does not improve with treatment she can return to the clinic for further evaluation. Medications: New azithromycin For 250 mg dose pack: take 500 mg today (day 1), then 250 mg for 4 days (days 2-5) PO 6 tabs 0RF H65.91 - Unspecified nonsuppurative otitis media, right ear Coding Level of Care Code Est Pt Level 4 (23492) Diagnoses Right otitis media with effusion H65.91
== END 2024-02-27 08:54 | disposition home or self-care (01) ==
PROVIDERS: PCP Internal Medicine; Visit Provider Nurse Practitioner Family
DX: H65.91 Unspecified nonsuppurative otitis media, right ear (principal)
CPT/HCPCS: 99214

== ENCOUNTER 2024-03-27 08:02 | Emergency (ER) | payer OTHER, SELFPAY ==
--- NOTE | ~2024-03-27 | CT_ITS ---
CT TEMPORAL BONES WITHOUT IV CONTRAST INDICATION: Right mastoid tenderness. COMPARISON: None available. TECHNIQUE: Multidetector CT acquisitions of the head was obtained without IV contrast. This CT examination was performed using dose optimization techniques as appropriate, variously including the following: *Automated exposure control *Adjustment of mA and/or kV according to patient size (this includes techniques or standardized protocols for targeted exams where dose is matched to indication/reason for exam; i.e. extremities or head) *Use of iterative reconstruction technique FINDINGS: The underdeveloped right mastoid air cells are nearly completely opacified and the right middle ear cavity is partially opacified without associated bony erosion. Soft tissue fills the medial right bony external auditory canal which could reflect cerumen or medial canal fibrosis that can be correlated with direct visual inspection. There is mild soft tissue within Prussak's space on the right side and slight blunting of the right scutum making it difficult to exclude the presence of cholesteatoma. Left mastoid air cells and the left middle ear cavity are clear. The inner ear structures including the cochlea, vestibules, and semicircular canals are normal. The vestibular aqueducts are not enlarged. The partially imaged paranasal sinuses are clear. CT/CT mastoid IMPRESSION: The underdeveloped right mastoid air cells are nearly completely opacified and the right middle ear cavity is partially opacified without associated bony erosion. Soft tissue fills the medial right bony external auditory canal which could reflect cerumen or medial canal fibrosis that can be correlated with direct visual inspection. There is mild soft tissue within Prussak's space on the right side and slight blunting of the right scutum making it difficult to exclude the presence of cholesteatoma.
[2024-03-27 08:44] VITALS: BP 147/80; PULSE 81; RESP 16; TEMP 36.7; O2SAT 100; BMI 21.8
--- NOTE | 2024-03-27 09:15 | ED.GENADULT ---
HPI - General Adult General Chief complaint: Ear Problems Stated complaint: Ear infection Time Seen by Provider: 03/27/24 09:08 Source: patient Mode of arrival: ambulatory Limitations: no limitations History of Present Illness HPI narrative: 28 yo female with PMH including but not limited to recurrent bilateral otitis media presents for evaluation of worsening right ear pain. Patient reports she has been to urgent care 5-6x in the last 3 months and has been prescribed 4 different courses of antibiotics, including 2x Z-Brayden, amoxicillin. Most recently, she went to urgent care on Sunday where they prescribed cefdinir and ciprofloxacin drops. She notes no improvement in symptoms, she feels as though her right ear is worsening. She endorses intense pressure in her right ear, as well as stabbing and piercing pain. She states the right ear feels full and she is not able to hear out of that ear. Endorses associated headache and facial pressure. She reports taking tylenol and ibuprofen for the pain, but does not provide relief. Last dose was taken around 6:30 AM. She denies fevers or chills. MD complaint: Worsening right ear pain Onset (ago): month(s) Severity: severe Quality: stabbing and other (Pressure) Relieving factors: none Associated symptoms: headaches Treatments prior to arrival: NSAID and other (Tylenol) Related Data Previous Rx's ?Medication ?Instructions ?Recorded dicyclomine 20 mg tablet 20 mg PO Q8-10H PRN abdominal 12/03/23 pain 30 days #90 tabs azithromycin 250 mg tablet See Rx Instructions PO .COMPLEX #6 02/27/24 tabs Allergies Allergy/AdvReac Type Severity Reaction Status Date / Time No Known Allergies Allergy Verified 03/27/24 08:45 Review of Systems Review of Systems: as per hpi Yes all other systems are reviewed and are negative [facility] Past Medical History Medical History Skin lesion Upper respiratory tract infection History of gestational diabetes Surgical History History of foot surgery History of wisdom tooth extraction Family History Family History Father Hypertension Mother In good health Maternal Grandfather Lung cancer Paternal Grandmother Ovarian cancer Diabetes Paternal Grandfather No problems noted. Maternal Grandmother Stroke Family/Other FH: mental illness Brother No problems noted. Brother No problems noted. Son No problems noted. Daughter No problems noted. Other Mental health problem Social History Social History Housing: House Alcohol intake: never Patient Tobacco Use Status: Former Tobacco user Tobacco use type: Cigarette Cigarettes Per Day: 1 e-Cigarette/Vaping Use: Currently Using Second Hand Smoke Exposure: Yes Substance Use Type: Marijuana Advance Directives: No service: No Current occupational status: unemployed Cognitive needs: No Hearing needs: No Vision needs: No Physical Exam ED Vital Signs: Vital Signs - 24 hr 03/27/24 08:44 Temperature 98.1 F Pulse Rate 81 Respiratory Rate 16 Blood Pressure 147/80 H Pulse Oximetry 100 Oxygen Delivery Method Room Air BMI result Body Mass Index 21.8 Appearance: Alert. Oriented X3. Tearful. Appears to be in pain. Head: normocephalic, atraumatic. Eyes: Pupils equal, round and reactive to light. ENT: Cerumen of left auditory canal. Purulence of right auditory canal, difficulty visualizing TM. Tenderness to palpation of right mastoid region. Tenderness to palpation of frontal and maxillary sinuses. Neck: Normal inspection. Neck supple. No lymphadenopathy. CVS: Normal heart rate and rhythm. Pulses normal. Respiratory: No respiratory distress. Breath sounds normal. Abdomen: Soft and nontender. Skin: Skin warm and dry. Normal skin color. Normal skin turgor. No rashes. Extremities: No lower extremity edema. No joint swelling. Neuro/psych: Oriented X 3. No motor deficit. No sensory deficit. CN II-XII intact. Normal speech and cognition. Medications Administered Discontinued Medications Generic Name Dose Route Start Last Admin Trade Name Freq PRN Reason Stop Dose Admin Ketorolac Tromethamine 15 mg 03/27/24 10:14 03/27/24 10:28 Ketorolac Tromethamine 15 Mg/Ml Vial IVPUSH 03/27/24 10:15 Not Given ONCE ONE Ketorolac Tromethamine 30 mg 03/27/24 10:28 03/27/24 11:00 Ketorolac Tromethamine 30 Mg/Ml Vial IM 03/27/24 10:29 30 mg ONCE ONE Administration Ondansetron HCl 4 mg 03/27/24 13:41 03/27/24 13:47 Ondansetron Odt 4 Mg Tab.Edward JOINGU 03/27/24 13:42 4 mg ONCE ONE Administration Tramadol HCl 50 mg 03/27/24 13:41 03/27/24 13:47 Tramadol Hcl 50 Mg Tablet PO 03/27/24 13:42 50 mg ONCE ONE Administration Medical Decision Making Medical Decision Making [facility] Narrative: 28 yo female with PMH including but not limited to recurrent bilateral otitis media presents for evaluation of worsening right ear pain. On exam patient is awake, A+Ox3, VS WNL, afebrile, normal neurological exam without focal deficits, physical exam findings as above. Given reported symptoms and physical exam findings, initial differential includes mastoiditis, chronic otitis media, otomycosis, rhinosinusitis. Labs notable for no leukocytosis, . CT notable for nearly completely opacified mastoid air cells, soft tissue filling the medial right bony external auditory canal and mild soft tissue within Prussak's space making it difficult to exclude cholesteatoma. My interpretation is in agreement with the radiologist's interpretation. Case discussed with Dr. Woods who recommends cleaning out ear canal and then he will see patient today in his office. Ear irrigated as per procedure note with moderate amount of thick white/yellow discharge and patient reporting she can hear well again. Patient instructed to proceed from the emergency department directly to Dr. Woods's office for further evaluation and management of her symptoms. Return precautions discussed. Will hold off on additional medications at this time. Patient will be contacted with any positive results culture. Patient verbalized understanding of and agreement with plan. Differential Diagnosis Differential Diagnoses: The differential diagnosis associated with the presentation includes Mastoiditis, cholesteatoma, chronic otitis media, otitis externa, otomycosis Admission/Observation Consideration of admission/observation: Escalation of care including admission/observation considered Lab Data [facility] Lab Attestation statement: I reviewed the patient's lab results. As per [facility]. 03/27/24 10:36 03/27/24 10:36 Labs: Lab Results 03/27/24 Range/Units 10:36 WBC 5.8 (4.8-10.8) X10*3/uL RBC 4.30 (4.20-5.50) X10*6/uL Hgb 13.5 (12.0-16.0) g/dl Hct 37.5 (37.0-47.0) % MCV 87.2 (80.0-98.0) fL MCH 31.4 (27.0-33.0) pg MCHC 36.0 H (31.0-35.0) g/dl RDW 11.5 (11.0-16.0) % Plt Count 242 D (160-400) X10*3/uL MPV 9.4 (9.4-12.3) fL Immature Gran % (Auto) 0.3 (0.0-0.4) % Neut % (Auto) 64.7 (45-73) % Lymph % (Auto) 25.4 (20-40) % Rock % (Auto) 8.2 (2-11) % Eos % (Auto) 0.7 (0-4) % Baso % (Auto) 0.7 (0-2) % Lymph # (Auto) 1.5 (1.2-4.9) X10*3/uL Rock # (Auto) 0.5 (0.1-1.2) X10*3/uL Eos # (Auto) 0.0 (0.0-0.4) X10*3/uL Baso # (Auto) 0.0 (0.0-0.2) X10*3/uL Abs Immat Gran (auto) 0.02 (0.00-0.03) X10*3/uL Absolute Neuts (auto) 3.8 (2.0-8.3) x10*3/uL Absolute Nucleated RBC 0.000 (0.0-0.012) X10*3/uL Nucleated RBC % (auto) 0.0 (0.0-0.2) /100WBC Sodium 141 (135-145) mmol/L Potassium 4.1 (3.3-5.1) mmol/L Chloride 107 (96-108) mmol/L Carbon Dioxide 28 (22-29) mmol/L Anion Gap 10 L (12-20) BUN 10 (9-16) mg/dL Creatinine 0.81 (0.5-1.4) mg/dL Estim Creat Clear Calc 76.6 Estimated GFR > 60 Random Glucose 89 (60-115) mg/dL Calcium 9.7 D (8.4-10.2) mg/dL C-Reactive Protein 0.18 (< or = 0.50) mg/dL Beta HCG, Quant < 2 mIU/mL Radiology Impression Discussion of test interpretation with radiology: I have reviewed the radiologist's reading. Radiologist Impression: CT/CT mastoid IMPRESSION: The underdeveloped right mastoid air cells are nearly completely opacified and the right middle ear cavity is partially opacified without associated bony erosion. Soft tissue fills the medial right bony external auditory canal which could reflect cerumen or medial canal fibrosis that can be correlated with direct visual inspection. There is mild soft tissue within Prussak's space on the right side and slight blunting of the right scutum making it difficult to exclude the presence of cholesteatoma. External Record Review External record reviewed: Inpatient record, Office record and Outpatient record Prescription Management I considered prescription management with: Antibiotic Discharge Plan Discharge Clinical Impression: Ear pain, right Patient Disposition: Home, Self-Care Instructions: Earache (ED) Additional Instructions: You were evaluated in the emergency department today for right ear pain. Your ear was irrigated and your hearing improved. You are being sent directly to Dr. Woods, ENT for further evaluation. Please go directly to his office when you leave the emergency department. Please follow up with primary care provider as well. Return to the emergency department if you develop increasing pain, fevers, loss of hearing, increased drainage from her ear or any other concerning symptoms. Prescriptions: No Action dicyclomine 20 mg tablet 20 mg PO Q8-10H PRN (Reason: abdominal pain) 30 Days Qty: 90 1RF azithromycin 250 mg tablet See Rx Instructions PO .COMPLEX Qty: 6 0RF Rx Instructions: For 250 mg dose pack: take 500 mg today (day 1), then 250 mg for 4 days (days 2-5) PO Referrals: Oliver Woods [Physician] - Stand Alone Forms: Work/School Release Print Language: German
[2024-03-27 10:41] LABS: MANUAL DIFF FLAG NO
[2024-03-27 10:49] LABS: Basophils Percent Auto 0.7 % (0-2); Eosinophils Percent Auto 0.7 % (0-4); Hematocrit 37.5 % (37.0-47.0); Hemoglobin 13.5 g/dl (12.0-16.0); Imm Gran Abs Auto 0.02 X10*3/uL (0.00-0.03); Imm Gran Pct Auto 0.3 % (0.0-0.4); Lymphocytes Absolute Auto 1.5 X10*3/uL (1.2-4.9); Lymphocytes Percent Auto 25.4 % (20-40); Mean Corpuscular Hemoglobin 31.4 pg (27.0-33.0); Mean Corpuscular Volume 87.2 fL (80.0-98.0); Mean Platelet Volume 9.4 fL (9.4-12.3); Monocytes Absolute Auto 0.5 X10*3/uL (0.1-1.2); Monocytes Percent Auto 8.2 % (2-11); Neutrophils Absolute Auto 3.8 x10*3/uL (2.0-8.3); Neutrophils Percent Auto 64.7 % (45-73); Platelet Count 242 X10*3/uL (160-400); Red Cell Distribution Width 11.5 % (11.0-16.0); White Blood Count 5.8 X10*3/uL (4.8-10.8)
[2024-03-27] MEDS: Ketorolac Tromethamine 30 MG/ML VIAL IM (11:00)
[2024-03-27 11:01] LABS: Anion Gap 10 (12-20); Blood Urea Nitrogen 10 mg/dL (9-16); Calcium 9.7 mg/dL (8.4-10.2); Carbon Dioxide 28 mmol/L (22-29); Chloride 107 mmol/L (96-108); Creatinine Clr Calc Pharmacy 76.6; Estimated Glomerular Filt Rate > 60; Glucose Random 89 mg/dL (60-115); Potassium 4.1 mmol/L (3.3-5.1); Sodium 141 mmol/L (135-145)
[2024-03-27 11:05] LABS: HCG Quantitative < 2 mIU/mL
[2024-03-27 13:28] LABS: C Reactive Protein 0.18 mg/dL (< or = 0.50)
[2024-03-27] MEDS: Ondansetron ODT 4 MG TAB.RAPDIS TRANSLINGU (13:47)
[2024-03-27] MEDS: traMADoL HCL 50 MG TABLET PO (13:47)
[2024-03-27 14:49] VITALS: BP 150/82; PULSE 118; RESP 18; TEMP 36.8; O2SAT 97
== END 2024-03-27 14:50 | disposition home or self-care (01) ==
PROVIDERS: Registered Nurse Emergency; Emergency Provider Emergency Medicine; PCP Internal Medicine
DX: H92.01 Otalgia, right ear (principal)
CPT/HCPCS: 36415; 70481; 80048; 84702; 85025; 86140; 87070; 87205; 96372; 99283; 99284; J1885

== ENCOUNTER 2024-04-24 15:40 | Outpatient (AMB) | payer OTHER, SELFPAY ==
--- NOTE | 2024-04-24 15:50 | MHC.PC.OV ---
Vital Signs 04/24/24 15:53 Height 5 ft 1 in Weight 116 lb BMI 21.9 BP 116/62 Blood Pressure Location Lt brachial Position Sitting Intake Visit Reasons: pe Intake Note: Patient here for a physical exam Financial Analyst Required: No Accompanied by: Self / Same As Patient Allergies No Known Allergies Allergy (Verified 04/24/24 16:14) Medication List - Last Reconciled 04/24/24 by Stephanie Evans MD dicyclomine 20 mg PO Q8-10H PRN 30 days Tobacco use date assessed: 04/24/24 Dental Screening Dental Screen Date: 04/24/24 Did you have a dental visit in the last 12 months?: Yes Did you have a dental problem in the last 6 months where you did not have access to dental care?: No Was dental information given to patient?: Patient has dentist HPI HPI Comments History of Present Illness Details This is a 28-year-old female that comes for her physical exam. Last Pap smear was last year. She has right ear recurrent infection and had a CT of the mastoid showing fluid collection with possibility of cholesteatoma. Saw ENT which did not seem to detect any abnormality. She wants a 2nd opinion. [facility] Medical History Skin lesion Upper respiratory tract infection History of gestational diabetes Surgical History History of foot surgery History of wisdom tooth extraction Family History Father Hypertension Mother In good health Maternal Grandfather Lung cancer Paternal Grandmother Ovarian cancer Diabetes Paternal Grandfather No problems noted. Maternal Grandmother Stroke Family/Other FH: mental illness Brother No problems noted. Brother No problems noted. Son No problems noted. Daughter No problems noted. Other Mental health problem Social History Housing: House Alcohol intake: never Patient Tobacco Use Status: Former Tobacco user Tobacco use type: Cigarette Cigarettes Per Day: 1 e-Cigarette/Vaping Use: Currently Using Second Hand Smoke Exposure: Yes Substance Use Type: Marijuana service: No Current occupational status: unemployed Cognitive needs: No Hearing needs: No Vision needs: No Questionnaire PHQ-9 Over the last 2 weeks, how often have you been bothered by any of the following problems? 1. Little interest or pleasure in doing things: not at all 2. Feeling down, depressed, or hopeless: not at all 3. Trouble falling or staying asleep, or sleeping too much: not at all 4. Feeling tired or having little energy: not at all 5. Poor appetite or overeating: not at all 6. Feeling bad about yourself - or that you are a failure or have let yourself or your family down: not at all 7. Trouble concentrating on things, such as reading the newspaper or watching television: not at all 8. Moving or speaking so slowly that other people could have noticed. Or the opposite - being so fidgety or restless that you have been moving around a lot more than usual: not at all 9. Thoughts that you would be better off or of hurting yourself in some way: not at all Total score: 0 Depression Screening Interpretation: Negative Depression Screening Done: Yes 66183 - PHQ-9 Billing: Yes Source: Developed by Drs. Fadi Miller, Colleen Grullon, [place] and colleagues, with an educational macarena from [employer]. Thrive Questionnaire Date Thrive assessed: 04/24/24 I am a: Patient What is your living situation today?: I have a steady place to live Within the past 12 months, did the food you bought not last and you didn't have the money to get more?: Never true Within the past 12 months, did you worry whether your food would run out before you got money to buy more?: Never true Do you have trouble paying for medicines?: No Do you have trouble getting transportation to medical appointments?: No Do you have trouble paying your heating and electricity bill?: No Do you have trouble taking care of your child, family member or friend?: No Do you have trouble with day-to-day activities such as bathing, preparing meals, shopping, managing finances, etc.?: No Are you currently unemployed and looking for a job?: No Are you interested in more education?: No Please select the resources that you would like help with: None Currently or been in a relationship where the following occur: no concerns reported THRIVE Score: 0 AUDIT C Alcohol Use Questionnaire (AUDIT-C) 1. How often do you have a drink containing alcohol?: Never Total Score: 0 Score Reviewed/Action Taken: No JOSE FRANCISCO-7 AMB Questionnaire JOSE FRANCISCO-7 Date JOSE FRANCISCO - 7 assessed: 04/18/23 Feeling nervous, anxious, or on edge: 0 = Not at all Not being able to stop or control worryin = Not at all Worrying too much about different things: 0 = Not at all Trouble relaxin = Not at all Being so restless that it is hard to sit still: 0 = Not at all Becoming easily annoyed or irritable: 0 = Not at all Feeling afraid as if something awful might happen: 0 = Not at all Total JOSE FRANCISCO-7 score (0-4 normal; 5-9 mild; 10-14 moderate; 15-21 severe): 0 Source: Developed by Drs. Fadi Miller, Colleen Grullon, [place] and colleagues, with an educational macarena from [employer]. JOSE FRANCISCO-7 Assessment Billing JOSE FRANCISCO-7 Assessment Tool: JOSE FRANCISCO-7 Assessment 12855 Review of Systems Const All systems reviewed & are unremarkable except as noted in HPI and below Card Denies chest pain at rest, Denies chest pain with activity, Denies edema, Denies irregular heart rhythm, Denies claudication, Denies dyspnea, Denies dyspnea on exertion, Denies orthopnea, Denies paroxysmal nocturnal dyspnea and Denies slow heart rate Resp Denies cough, Denies dyspnea and Denies dyspnea on exertion GI Denies abdominal pain, Denies change in bowel habits, Denies excessive flatus, Denies nausea and Denies vomiting Denies urinary incontinence, Denies urinary hesitancy and Denies urinary urgency Musc Denies atrophy, Denies deformity and Denies limited range of motion Neuro Denies confusion Psych Denies confusion Physical exam (Primary Care) Vital Signs: Last Vital Signs BP 116/62 04/24/24 15:53 BMI result Body Mass Index 21.9 Tobacco/Smoking Status: Tobacco use Status Tobacco use date assessed 04/24/24 04/24/24 16:05 Patient Tobacco Use Status Former Tobacco user 04/24/24 15:52 Tobacco use type Cigarette 04/24/24 15:52 e-Cigarette/Vaping Use Currently Using 06/13/24 15:52 PHQ-9: PHQ-9 Score PHQ-9: Total score 0 04/24/24 16:16 Depression Screening Interpretation: Negative Thrive Assessment: Date of Thrive Assessment Date Thrive assessed 04/24/24 04/24/24 15:52 Currently or been in a relationship where the following occur: no concerns reported Const General: No confusion Orientation/consciousness: patient oriented x3 and No confusion HENMT Head: Yes normal to inspection, Yes normocephalic and Yes atraumatic Ears: external ears normal Eyes General: appearance normal, both eyes and all related structures Eyelids: Yes eyelids normal Conjunctivae: conjunctivae normal Neck Neck: Yes normal visual inspection and Yes supple Resp Effort & Inspection: normal respiratory effort Auscultation: clear to auscultation bilaterally Cardio Jugular venous distension: no JVD Rate: regular rate Rhythm: regular rhythm Heart sounds: S1 normal heart sound present and S2 normal heart sound present GI Inspection: Yes normal to inspection Palpation (GI): Soft to palpation and nontender Auscultation: normal bowel sounds Skin General skin exam: no rashes or lesions noted Neuro General: patient oriented x3, no focal motor deficits and No confusion Extrem General: Yes full ROM Psych Appearance: grossly normal Assessment and Plan Assessment & Plan (1) Physical exam: Code(s): Z00.00 - Encounter for general adult medical examination without abnormal findings Plan: Repeat in a year. Orders: Referrals Ear/Nose/Throat Referral H71.90 - Unspecified cholesteatoma, unspecified ear, H92.09 - Otalgia, unspecified ear Coding Level of Care Code Est Pt Prev Care 18-39y(29446) Diagnoses Physical exam Z00.00 Additional Codes JOSE FRANCISCO-7 Assessment Billing - JOSE FRANCISCO-7 Assessment Tool: JOSE FRANCISCO-7 Assessment 51004 ([id number]) Time Spent (min) 30
[2024-04-24 15:53] VITALS: BP 116/62; BMI 21.9
== END 2024-04-24 16:29 | disposition home or self-care (01) ==
PROVIDERS: PCP Internal Medicine; Visit Provider Internal Medicine
DX: Z00.00 Encounter for general adult medical examination without abnormal findings (principal)
CPT/HCPCS: 99395

== ENCOUNTER 2024-05-22 12:36 | Outpatient (AMB) | payer BC, SELFPAY ==
[2024-05-22 12:47] VITALS: BP 118/62; PULSE 78; O2SAT 98; BMI 22.3
--- NOTE | 2024-05-22 12:47 | A.OFFPC_ITS ---
Vital Signs 05/22/24 12:47 Height 5 ft 1 in Weight 118 lb BMI 22.3 BP 118/62 Blood Pressure Location Lt brachial Position Sitting Pulse 78 Pulse Source Pulse Oximeter Pulse Oximetry (%) 98 Oxygen Delivery Method Room Air Intake Visit Reasons: ear pain Brush Fabrication Supervisor Required: No Accompanied by: Self / Same As Patient Allergies No Known Allergies Allergy (Verified 05/22/24 12:58) Medication List - Last Reconciled 05/22/24 by Stephanie Evans MD dicyclomine 20 mg PO Q8-10H PRN 30 days Tobacco use date assessed: 04/24/24 Dental Screening Dental Screen Date: 04/24/24 HPI HPI Comments History of Present Illness Details This is a 28-year-old female that complains of right ear pain that has been on and off for few months. Tramadol seems to improve the pain as needed. She does have right ear effusion but no infection. Was seen by ENT in [place] and they rule out cholesteatoma despite CT of mastoid being abnormal. Has a 2nd opinion in [place] in August. No fever. [facility] Medical History (Updated 05/22/24 @ 13:15 by Stephanie Evans MD) Skin lesion Upper respiratory tract infection History of gestational diabetes Surgical History History of foot surgery History of wisdom tooth extraction Family History Father Hypertension Mother In good health Maternal Grandfather Lung cancer Paternal Grandmother Ovarian cancer Diabetes Paternal Grandfather No problems noted. Maternal Grandmother Stroke Family/Other FH: mental illness Brother No problems noted. Brother No problems noted. Son No problems noted. Daughter No problems noted. Other Mental health problem Social History Housing: House Alcohol intake: never Patient Tobacco Use Status: Former Tobacco user Tobacco use type: Cigarette Cigarettes Per Day: 1 e-Cigarette/Vaping Use: Currently Using Second Hand Smoke Exposure: Yes Substance Use Type: Marijuana service: No Current occupational status: unemployed Cognitive needs: No Hearing needs: No Vision needs: No Questionnaire PHQ-9 Over the last 2 weeks, how often have you been bothered by any of the following problems? 1. Little interest or pleasure in doing things: not at all 2. Feeling down, depressed, or hopeless: not at all 3. Trouble falling or staying asleep, or sleeping too much: not at all 4. Feeling tired or having little energy: not at all 5. Poor appetite or overeating: not at all 6. Feeling bad about yourself - or that you are a failure or have let yourself or your family down: not at all 7. Trouble concentrating on things, such as reading the newspaper or watching television: not at all 8. Moving or speaking so slowly that other people could have noticed. Or the opposite - being so fidgety or restless that you have been moving around a lot more than usual: not at all 9. Thoughts that you would be better off or of hurting yourself in some way: not at all Total score: 0 Depression Screening Interpretation: Negative Depression Screening Done: Yes 21945 - PHQ-9 Billing: Yes Source: Developed by Drs. Fadi Miller, Colleen Grullon, New Arroyo and colleagues, with an educational macarena from [employer]. Thrive Questionnaire Date Thrive assessed: 04/24/24 AUDIT C Alcohol Use Questionnaire (AUDIT-C) 1. How often do you have a drink containing alcohol?: Never Total Score: 0 Score Reviewed/Action Taken: No JOSE FRANCISCO-7 AMB Questionnaire JOSE FRANCISCO-7 Date JOSE FRANCISCO - 7 assessed: 05/22/24 Feeling nervous, anxious, or on edge: 0 = Not at all Not being able to stop or control worryin = Not at all Worrying too much about different things: 0 = Not at all Trouble relaxin = Not at all Being so restless that it is hard to sit still: 0 = Not at all Becoming easily annoyed or irritable: 0 = Not at all Feeling afraid as if something awful might happen: 0 = Not at all Total JOSE FRANCISCO-7 score (0-4 normal; 5-9 mild; 10-14 moderate; 15-21 severe): 0 Source: Developed by Drs. Fadi Miller, Colleen Grullon, New Arroyo and colleagues, with an educational macarena from [employer]. JOSE FRANCISCO-7 Assessment Billing JOSE FRANCISCO-7 Assessment Tool: JOSE FRANCISCO-7 Assessment 09773 Review of Systems Const All systems reviewed & are unremarkable except as noted in HPI and below ENT Reports otalgia Card Denies chest pain at rest, Denies chest pain with activity, Denies edema, Denies irregular heart rhythm, Denies claudication, Denies dyspnea, Denies dyspnea on exertion, Denies orthopnea, Denies paroxysmal nocturnal dyspnea and Denies slow heart rate Resp Denies cough, Denies dyspnea and Denies dyspnea on exertion Physical exam (Primary Care) Vital Signs: Last Vital Signs Pulse 78 05/22/24 12:47 BP 118/62 05/22/24 12:47 Pulse Ox 98 05/22/24 12:47 Oxygen Delivery Method Room Air 05/22/24 12:47 BMI result Body Mass Index 22.3 Tobacco/Smoking Status: Tobacco use Status Tobacco use date assessed 04/24/24 05/22/24 12:52 Patient Tobacco Use Status Former Tobacco user 05/22/24 12:52 Tobacco use type Cigarette 05/22/24 12:52 e-Cigarette/Vaping Use Currently Using 05/22/24 12:52 PHQ-9: PHQ-9 Score PHQ-9: Total score 0 05/22/24 12:52 Depression Screening Interpretation: Negative Thrive Assessment: Date of Thrive Assessment Date Thrive assessed 04/24/24 05/22/24 12:52 HENMT Ears: hearing grossly normal bilaterally, external ears normal and TM abnormal (right ear) wth effusion Resp Effort & Inspection: normal respiratory effort Auscultation: clear to auscultation bilaterally Cardio Jugular venous distension: no JVD Rate: regular rate Rhythm: regular rhythm Heart sounds: S1 normal heart sound present and S2 normal heart sound present Assessment and Plan Assessment & Plan (1) Otalgia: Code(s): H92.09 - Otalgia, unspecified ear Qualifiers: Laterality: right Qualified Code(s): H92.01 - Otalgia, right ear Plan: Continue tramadol as needed. Medications: New tramadol 50 mg PO BID 30 days PRN 10 tabs 0RF pain Coding Level of Care Code Est Pt Level 3 (84214) Complex EM visit Add On G2211 Diagnoses Right ear pain H92.01 Laterality: right Additional Codes JOSE FRANCISCO-7 Assessment Billing - JOSE FRANCISCO-7 Assessment Tool: JOSE FRANCISCO-7 Assessment 00000 ([id number]) Time Spent (min) 19
== END 2024-05-22 13:08 | disposition home or self-care (01) ==
PROVIDERS: PCP Internal Medicine; Visit Provider Internal Medicine
DX: H92.01 Otalgia, right ear (principal)
CPT/HCPCS: 99213

== ENCOUNTER 2024-10-01 15:56 | Outpatient (REF) | payer BC, SELFPAY ==
[2024-10-01 16:11] LABS: MANUAL DIFF FLAG NO
[2024-10-01 16:42] LABS: Basophils Absolute Auto 0.1 X10*3/uL (0.0-0.2); Basophils Percent Auto 0.7 % (0-2); Eosinophils Absolute Auto 0.1 X10*3/uL (0.0-0.4); Eosinophils Percent Auto 0.9 % (0-4); Hematocrit 39.5 % (37.0-47.0); Hemoglobin 14.2 g/dl (12.0-16.0); Imm Gran Abs Auto 0.03 X10*3/uL (0.00-0.03); Imm Gran Pct Auto 0.3 % (0.0-0.4); Lymphocytes Absolute Auto 2.7 X10*3/uL (1.2-4.9); Lymphocytes Percent Auto 29.8 % (20-40); Mean Corpuscular HGB Conc 35.9 g/dl (31.0-35.0); Mean Corpuscular Hemoglobin 31.1 pg (27.0-33.0); Mean Corpuscular Volume 86.6 fL (80.0-98.0); Mean Platelet Volume 9.8 fL (9.4-12.3); Monocytes Absolute Auto 0.7 X10*3/uL (0.1-1.2); Monocytes Percent Auto 7.8 % (2-11); Neutrophils Absolute Auto 5.4 x10*3/uL (2.0-8.3); Neutrophils Percent Auto 60.5 % (45-73); Platelet Count 253 X10*3/uL (160-400); Red Blood Count 4.56 X10*6/uL (4.20-5.50); Red Cell Distribution Width 11.7 % (11.0-16.0); White Blood Count 8.9 X10*3/uL (4.8-10.8)
[2024-10-01 16:52] LABS: Appearance Urine Clear; Color Urine Yellow; Glucose Urine UA Negative (Negative); Leukocyte Esterase Urine Small (1+) (Negative); Nitrite Urine Negative (Negative); PH 7.5 (5.0-9.0); Specific Gravity - Urine <= 1.005 (1.005-1.025); UMIC TRIGGER UACC YES; Urine Blood Negative (Negative); Urine Ketones Negative (Negative); Urine Protein Negative (Neg-Trace)
[2024-10-01 17:06] LABS: Bacteria Urine None Seen (None Seen); Hyaline Casts Urine 0-2 /LPF (0-2); RBC Urine 0-2 /HPF (0-2); Squamous Epithelial Cell Urine 0-2 /HPF (0-2); UACC Culture Trigger YES; WBC Urine 0-5 /HPF (0-5)
[2024-10-01 17:10] LABS: Alanine Aminotransferase 29 U/L (0-31); Albumin Level 4.7 g/dL (3.5-5.0); Alkaline Phosphatase 56 U/L (39-117); Anion Gap 12 (12-20); Bilirubin Total 0.4 mg/dL (0.0-1.0); Blood Urea Nitrogen 11 mg/dL (9-16); Calcium 9.9 mg/dL (8.4-10.2); Carbon Dioxide 25 mmol/L (22-29); Chloride 106 mmol/L (96-108); Estimated Glomerular Filt Rate > 60; Glucose Random 85 mg/dL (60-115); Sodium 139 mmol/L (135-145); Total Protein 7.2 g/dL (6.5-8.0)
[2024-10-01 17:21] LABS: Aspartate Amino Transferase 25 U/L (5-31)
== END 2024-10-01 15:57 | disposition home or self-care (01) ==
LOC: HO.LAB 15:56
PROVIDERS: PCP Internal Medicine; Visit Provider Internal Medicine
DX: R10.9 Unspecified abdominal pain (principal); D64.9 Anemia, unspecified
CPT/HCPCS: 36415; 80053; 81001; 85025; 87086

== ENCOUNTER 2024-12-10 14:06 | Outpatient (REF) | payer BC, SELFPAY ==
[2024-12-10 16:24] LABS: Influenza A PCR POSITIVE (Negative); Influenza B PCR NEGATIVE (Negative); Resp Syncy Virus RNA Qual PCR NEGATIVE (Negative); SARS COV2 PCR INHOUSE NEGATIVE (Negative)
--- OUTSIDE RECORDS SUMMARY | 2024-12-10 17:05 | XMS_ITS | Encounter Summary ---
Author Organization [facility] Address [address] [place] [address] Phone Care Team Providers Care Oil Rag Washer Name Role Phone Yesica Kowalski MD Primary Care Provider [phone] Encounter Details Date Type Department Care Team (Late st Contact Info) Description 04/17/2012 Documentation [facility] [facility] [address] [place], [place] [id number] Family Medicine, Physician [address] [place], [place] [address] Social History Tobacco Use Types Packs/Day Years [...] on filedocumented in this encounter Care Teams Oil Rag Washer Relationship Specialty Start Date End Date Yesica Kowalski MD [address] [place] [address] PCP - General 06/22/17 02/22/23 documented as of this encounter
--- OUTSIDE RECORDS SUMMARY | 2024-12-10 17:05 | XMS_ITS | Encounter Summary ---
Author Organization [facility] Address [address] [place] [address] Phone Care Team Providers Care Chrome Tanning Drum Operator Name Role Phone Yesica Kowalski MD Primary Care Provider [phone] Encounter Details Date Type Department Care Team (Late st Contact Info) Description 04/26/2012 Documentation [facility] [place] [facility] [address] [place], [place] [phone] Family Medicine, Physician [address] [place], [place] [address] Social History Tobacco Use Types Packs/Day Years [...] on filedocumented in this encounter Care Teams Chrome Tanning Drum Operator Relationship Specialty Start Date End Date Yesica Kowalski MD [address] [facility] [place] [address] PCP - General 06/22/17 02/22/23 documented as of this encounter
--- OUTSIDE RECORDS SUMMARY | 2024-12-10 17:05 | XMS_ITS | Encounter Summary ---
Author Organization [facility] Address [address] [place] [address] Phone Care Team Providers Care Regrind Mill Operator Name Role Phone Yesica Kowalski MD Primary Care Provider [phone] Encounter Details Date Type Department Care Team (Late st Contact Info) Description 01/15/2012 Documentation [facility] [place] [address] [place], [place] [phone] Family Medicine, Physician [address] [place], [place] [address] Social History Tobacco Use Types Packs/Day Years [...] on filedocumented in this encounter Care Teams Regrind Mill Operator Relationship Specialty Start Date End Date Yesica Kowalski MD [address] [facility] [place] [address] PCP - General 06/22/17 02/22/23 documented as of this encounter
--- OUTSIDE RECORDS SUMMARY | 2024-12-10 17:05 | XMS_ITS | Clinical Summary ---
Author Organization [facility] Address [address] [place] [address] Phone Care Team Providers Care Scan Coordinator Name Role Phone Unavailable Primary Care Provider [...] complete this topic Procedures * Due to [place] [employer] law, this organization might not be sharing sensitive test results. Procedure Name Priority Date/Time Associated Diagnosis Comments CHLAMYDIA AND GONORRHEA, AMPLIFIED Routine 07/16/2013 3:51 PM EDT from Last 3 Months or Most Recently Relevant to Health Maintenance Results * Due to [place] state law, this organization might not be sharing sensitive test results. * Chlamydia and Gonorrhoea, Amplified (07/16/2013 3:51 PM EDT) URINE CHLAMYDIA AMP PROBE NEGATIVE [facility] Comment: NO CHLAMYDIA TRACHOMATIS RNA DETECTED IN THIS PATIENT'S SAMPLE. ? (REFERENCE RANGE/NORMAL VALUE: NOT DETECTED) URINE GC AMP PROBE NEGATIVE [facility] Comment: NO NEISSERIA GONORRHOEAE RNA DETECTED IN THIS PATIENT'S SAMPLE. ? (REFERENCE RANGE/NORMAL VALUE: NOT DETECTED) ? NOTE: THIS TEST USES MANAGER RETENTION-MEDIATED AMPLIFICATION METHOD TO DETECT rRNA FROM C.TRACHOMATIS [...] OF INFECTION. 07/16/2013 3:51 PM EDT Narrative [facility] - 07/16/2013 3:51 PM EDT URINE CHLAMYDIA GC AMP PROBE us Yesica Kowalski MD LAB MICROBIOLOGY - GENERAL ORD ERABLES Final Result [facility] [address] [place] [address], [place] from Last 3 Months or Most Recently Relevant to Health Maintenance
--- OUTSIDE RECORDS SUMMARY | 2024-12-10 17:05 | XMS_ITS | Encounter Summary ---
Author Organization [facility] Address [address] [place] [address] Phone Care Team Providers Care Tree Sapper Name Role Phone Yesica Kowalski MD Primary Care Provider [phone] Encounter Details Date Type Department Care Team (Late st Contact Info) Description 08/08/2017 Conversion Encounter [facility] [address] [place] [address] Social History Tobacco Use Types Packs/Day Years [...] on filedocumented in this encounter Care Teams Tree Sapper Relationship Specialty Start Date End Date Yesica Kowalski MD [address] [place] [address] PCP - General 06/22/17 02/22/23 documented as of this encounter
--- OUTSIDE RECORDS SUMMARY | 2024-12-10 17:05 | XMS_ITS | Encounter Summary ---
Author Organization [facility] Address [address] [place] [address] Phone Care Team Providers Care Refrigerating Machine Operator Name Role Phone Yesica Kowalski MD Primary Care Provider [phone] Encounter Details Date Type Department Care Team (Late st Contact Info) Description 04/17/2012 Documentation [facility] [place] Family Medicine [address] [place], [place] [phone] Family Medicine, Physician [address] [place], [place] [address] Social History Tobacco Use Types Packs/Day Years [...] on filedocumented in this encounter Care Teams Refrigerating Machine Operator Relationship Specialty Start Date End Date Yesica Kowalski MD [address] [facility] [address] PCP - General 06/22/17 02/22/23 documented as of this encounter
--- OUTSIDE RECORDS SUMMARY | 2024-12-10 17:05 | XMS_ITS | Encounter Summary ---
Author Organization [facility] Address [address] [place] [address] Phone Care Team Providers Care Fraud Examiner Name Role Phone Yesica Kowalski MD Primary Care Provider [phone] Encounter Details Date Type Department Care Team (Late st Contact Info) Description 06/21/2011 Documentation [facility] [place] [address] [place], [place] [phone] Family Medicine, Physician [address] [place], [place] [address] Social History Tobacco Use Types Packs/Day Years [...] on filedocumented in this encounter Care Teams Fraud Examiner Relationship Specialty Start Date End Date Yesica Kowalski MD [address] [facility] [place] [address] PCP - General 06/22/17 02/22/23 documented as of this encounter
--- OUTSIDE RECORDS SUMMARY | 2024-12-10 17:05 | XMS_ITS | Encounter Summary ---
Author Organization [facility] Address [address] [place] [address] Phone Care Team Providers Care Medical Lab Tech Instructor Name Role Phone Yesica Kowalski MD Primary Care Provider [phone] Encounter Details Date Type Department Care Team (Late st Contact Info) Description 04/17/2011 Documentation [facility] [place] [address] [place], [place] [phone] Family Medicine, Physician [address] [place], [place] [address] Social History Tobacco Use Types Packs/Day Years [...] on filedocumented in this encounter Care Teams Medical Lab Tech Instructor Relationship Specialty Start Date End Date Yesica Kowalski MD [address] [facility] [place] [address] PCP - General 06/22/17 02/22/23 documented as of this encounter
== END 2024-12-10 14:07 | disposition home or self-care (01) ==
LOC: HO.LAB 14:06
PROVIDERS: PCP Internal Medicine
DX: J39.9 Disease of upper respiratory tract, unspecified (principal); H92.01 Otalgia, right ear; R09.81 Nasal congestion; H65.93 Unspecified nonsuppurative otitis media, bilateral; R06.2 Wheezing
CPT/HCPCS: 0241U; 96127

== ENCOUNTER 2024-12-10 14:06 | Outpatient (AMB) | payer BC, SELFPAY ==
[2024-12-10 14:09] VITALS: BP 116/72; PULSE 57; TEMP 36.9; O2SAT 97; BMI 23.1
--- NOTE | 2024-12-10 14:09 | A.OFFPC_ITS ---
Vital Signs 12/10/24 14:09 Height 5 ft 1 in Weight 122 lb 2 oz BMI 23.1 BP 116/72 Blood Pressure Location Lt brachial Position Sitting Pulse 57 Pulse Source Pulse Oximeter Temp 98.5 F Temp Source Oral Pulse Oximetry (%) 97 Oxygen Delivery Method Room Air Intake Visit Reasons: ear infection persisting from last Sunday Hot Dipper Required: No Accompanied by: Self / Same As Patient Allergies No Known Allergies Allergy (Verified 12/11/24 21:37) Medication List - Last Reconciled 12/11/24 by PETER Gomes albuterol sulfate 90 mcg/actuation 2 puffs inhalation Q6H PRN dicyclomine 20 mg PO Q8-10H PRN 30 days fluticasone propionate 50 mcg/actuation 1 spray intranasal BID tramadol 50 mg PO BID PRN 30 days Tobacco use date assessed: 12/10/24 Dental Screening Dental Screen Date: 12/10/24 HPI ear infection persisting from last Sunday HPI Details The patient is a 29-year-old female with significant past medical history of cholesteatoma, otalgia, psoriasis, anxiety, pharyngitis and gestational diabetes She is presenting with a 5 day history of ear pain, cough, nasal congestion, and watery eyes Reports she was in the [facility] when symptoms started. She was prescribed prednisone without any relief Reports that she is unable to sleep. Reports that her son was diagnosed with flu A She denies sore throat, denies shortness of breath, denies chest pain, but endorse mild chest tightness with deep breaths Reports alternating ibuprofen and Tylenol for body aches. Reports having a fever few nights ago. On exam: The patient was noted to have inspiratory wheezes throughout and red and swollen nasal passages [facility] Medical History Skin lesion Upper respiratory tract infection History of gestational diabetes Surgical History History of foot surgery History of wisdom tooth extraction Family History Father Hypertension Mother In good health Maternal Grandfather Lung cancer Paternal Grandmother Ovarian cancer Diabetes Paternal Grandfather No problems noted. Maternal Grandmother Stroke Family/Other FH: mental illness Brother No problems noted. Brother No problems noted. Son No problems noted. Daughter No problems noted. Other Mental health problem Social History Housing: House Alcohol intake: never Patient Tobacco Use Status: Former Tobacco user Tobacco use type: Cigarette Cigarettes Per Day: 1 e-Cigarette/Vaping Use: Currently Using Second Hand Smoke Exposure: Yes Substance Use Type: Marijuana service: No Current occupational status: unemployed Cognitive needs: No Hearing needs: No Vision needs: No Questionnaire PHQ-9 Over the last 2 weeks, how often have you been bothered by any of the following problems? 1. Little interest or pleasure in doing things: not at all 2. Feeling down, depressed, or hopeless: not at all 3. Trouble falling or staying asleep, or sleeping too much: not at all 4. Feeling tired or having little energy: not at all 5. Poor appetite or overeating: not at all 6. Feeling bad about yourself - or that you are a failure or have let yourself or your family down: not at all 7. Trouble concentrating on things, such as reading the newspaper or watching television: not at all 8. Moving or speaking so slowly that other people could have noticed. Or the opposite - being so fidgety or restless that you have been moving around a lot more than usual: not at all 9. Thoughts that you would be better off or of hurting yourself in some way: not at all Total score: 0 Depression Screening Interpretation: Negative Depression Screening Done: Yes 66483 - PHQ-9 Billing: Yes Source: Developed by Drs. Fadi Miller, Colleen Grullon, New Arroyo and colleagues, with an educational macarena from [employer]. Thrive Questionnaire Date Thrive assessed: 12/10/24 I am a: Patient What is your living situation today?: I have a steady place to live Within the past 12 months, did the food you bought not last and you didn't have the money to get more?: Never true Within the past 12 months, did you worry whether your food would run out before you got money to buy more?: Never true Do you have trouble paying for medicines?: No Do you have trouble getting transportation to medical appointments?: No Do you have trouble paying your heating and electricity bill?: No Do you have trouble taking care of your child, family member or friend?: No Do you have trouble with day-to-day activities such as bathing, preparing meals, shopping, managing finances, etc.?: No Are you currently unemployed and looking for a job?: No Are you interested in more education?: No Please select the resources that you would like help with: None Currently or been in a relationship where the following occur: No concerns reported THRIVE Score: 0 AUDIT C Alcohol Use Questionnaire (AUDIT-C) 1. How often do you have a drink containing alcohol?: Never Total Score: 0 Score Reviewed/Action Taken: No JOSE FRANCISCO-7 AMB Questionnaire JOSE FRANCISCO-7 Date JOSE FRANCISCO - 7 assessed: 12/10/24 Feeling nervous, anxious, or on edge: 0 = Not at all Not being able to stop or control worryin = Not at all Worrying too much about different things: 0 = Not at all Trouble relaxin = Not at all Being so restless that it is hard to sit still: 0 = Not at all Becoming easily annoyed or irritable: 0 = Not at all Feeling afraid as if something awful might happen: 0 = Not at all Total JOSE FRANCISCO-7 score (0-4 normal; 5-9 mild; 10-14 moderate; 15-21 severe): 0 Source: Developed by Drs. Fadi Miller, Colleen Grullon, New Arroyo and colleagues, with an educational macarena from [employer]. JOSE FRANCISCO-7 Assessment Billing JOSE FRANCISCO-7 Assessment Tool: JOSE FRANCISCO-7 Assessment 18967 Review of Systems Const Details: Denies chills, Denies fatigue, + fever(s), Denies headache(s) and Denies weakness HEENT Denies change in vision, Denies dizziness, Denies headache(s), Denies hearing loss, + nasal congestion, +left ear pain, Denies sinus pain, Denies sinus pressure and +mild sore throat Card Denies chest pain, Denies lightheadedness, Denies dyspnea and Denies other (palpitations) Resp + cough, Denies dyspnea and Denies wheezing GI Denies abdominal pain, Denies melena, Denies hematochezia, Denies change in bowel habits, Denies dyspepsia and Denies nausea Denies hematuria and Denies dysuria Physical exam (Primary Care) Vital Signs: Last Vital Signs Temp 98.5 F 12/10/24 14:09 Pulse 57 12/10/24 14:09 BP 116/72 12/10/24 14:09 Pulse Ox 97 12/10/24 14:09 Oxygen Delivery Method Room Air 12/10/24 14:09 BMI result Body Mass Index 23.1 Tobacco/Smoking Status: Tobacco use Status Tobacco use date assessed 12/10/24 12/10/24 14:11 Patient Tobacco Use Status Former Tobacco user 12/10/24 14:11 Tobacco use type Cigarette 12/10/24 14:11 e-Cigarette/Vaping Use Currently Using 12/10/24 14:11 PHQ-9: PHQ-9 Score PHQ-9: Total score 0 12/11/24 21:39 Depression Screening Interpretation: Negative Thrive Assessment: Date of Thrive Assessment Date Thrive assessed 12/10/24 12/10/24 14:11 Currently or been in a relationship where the following occur: No concerns reported Const Other: General: no acute distress, well developed, alert and awake Nutritional Appearance: well nourished Orientation/consciousness: patient oriented x3 HENMT Head: Yes normocephalic and Yes atraumatic Ears: hearing grossly normal bilaterally and bilateral ears effusion General nose exam: Normal external nose present and bilateral nares erythematous/edema, turbinates boggy bilaterally Mouth: Normal oral and palatal mucosa present and moist mucous membranes Eyes Pupils: Equal, round and reactive pupils present and Pupil accommodation reflex normal EOM: EOMs intact bilaterally Neck Neck: Yes normal visual inspection, Yes no lymphadenopathy and Yes trachea midline Thyroid: Thyroid normal Lymphatic: no lymphadenopathy noted Resp Effort & Inspection: normal respiratory effort Auscultation: inspiratory wheezes Cardio Rate: regular rate Rhythm: regular rhythm Heart sounds: S1 normal heart sound present, S2 normal heart sound present, no gallops, no murmurs and no rubs GI Palpation (GI): abdomen soft and nontender Auscultation: normal bowel sounds General: Yes no CVA tenderness Skin General: warm and dry. Normal skin color. Normal skin turgor Lesions: no lesions Nails: normal Neuro General: patient oriented x3, gait normal Cranial nerves: Yes Equal, round and reactive pupils present Cognition (Neuro): normal cognition Gait exam (Neuro): Normal gait present Extrem General: Yes normal to inspection, No edema and No calf tenderness Psych Appearance: grossly normal Affect: normal affect Attitude: cooperative Thought process: Normal thought process present Coding Level of Care Code Est Pt Level 3 (79517) Diagnoses Upper respiratory disease J39.9 Right ear pain H92.01 Laterality: right Nasal congestion R09.81 Fluid level behind tympanic membrane of both ears H65.93 Laterality: bilateral Inspiratory wheeze on examination R06.2 Additional Codes JOSE FRANCISCO-7 Assessment Billing - JOSE FRANCISCO-7 Assessment Tool: JOSE FRANCISCO-7 Assessment 70918 ([id number]) PHQ-9 - 57197 - PHQ-9 Billing: Yes ([id number]) Time Spent (min) 29 Assessment & Plan Assessment & Plan (1) Upper respiratory disease: Code(s): J39.9 - Disease of upper respiratory tract, unspecified Category: Medical Plan: Respiratory panel ordered (2) Otalgia: Code(s): H92.09 - Otalgia, unspecified ear Category: Medical Qualifiers: Laterality: right Qualified Code(s): H92.01 - Otalgia, right ear Plan: Encouraged Zyrtec OTC Continue ibuprofen p.r.n. for pain (3) Nasal congestion: Code(s): R09.81 - Nasal congestion Category: Medical Plan: Flonase ordered (4) Middle ear effusion: Code(s): H65.90 - Unspecified nonsuppurative otitis media, unspecified ear Category: Medical Qualifiers: Laterality: bilateral Qualified Code(s): H65.93 - Unspecified nonsuppurative otitis media, bilateral Plan: Encouraged Zyrtec OTC (5) Inspiratory wheeze on examination: Code(s): R06.2 - Wheezing Category: Medical Plan: Albuterol rescue inhaler ordered Plan Follow up PRN To return as scheduled in May 2025 for her annual physical examination with her PCP Orders: Orders SARS-CoV2/FLU/RSV 12/10/24 J39.9 - Disease of upper respiratory tract, unspecified Medications: New fluticasone propionate 50 mcg/actuation administer into each nostril 1 spray intranasal BID 16 grams 0RF albuterol sulfate 90 mcg/actuation 2 puffs inhalation Q6H PRN 8.5 grams 0RF shortness of breath or wheezing
--- OUTSIDE RECORDS SUMMARY | 2024-12-10 16:25 | XMS_ITS | Encounter Summary ---
Author Organization [facility] Address [address] [place] [address] Phone Care Team Providers Care Wood Finisher Apprentice Name Role Phone Yesica Kowalski MD Primary Care Provider [phone] Encounter Details Date Type Department Care Team (Late st Contact Info) Description 06/21/2011 Documentation [facility] [place] Medicine [address] [place], [place] [id number] Family Medicine, Physician [address], [place] [address] Social History Tobacco Use Types Packs/Day Years Used Date Smoking Tobacco: Never Assessed Comments Unknown Sex and Gender Information Value Date Recorded Sex Assigned at Not on file Legal Sex Female 4:51 PM EDT Gender Identity Not on file Sexual Orientation Not on file documented as of this encounter Plan of Treatment Not on file documented as of this encounter Visit Diagnoses Not on filedocumented in this encounter Care Teams Wood Finisher Apprentice Relationship Specialty Start Date End Date Yesica Kowalski MD [address] [facility] [place] [address] PCP - General 06/22/17 02/22/23 documented as of this encounter
--- OUTSIDE RECORDS SUMMARY | 2024-12-10 16:25 | XMS_ITS | Encounter Summary ---
Author Organization [facility] Address [address] [place] [address] Phone Care Team Providers Care Pollution Control Engineer Name Role Phone Yesica Kowalski MD Primary Care Provider [phone] Encounter Details Date Type Department Care Team (Late st Contact Info) Description 04/26/2012 Documentation [facility] [place] [place] Family Medicine [address] [place], [place] [phone] Family Medicine, Physician [address], [place] [address] Social History Tobacco Use Types Packs/Day Years [...] on filedocumented in this encounter Care Teams Pollution Control Engineer Relationship Specialty Start Date End Date Yesica Kowalski MD [address] [place] [address] PCP - General 06/22/17 02/22/23 documented as of this encounter
--- OUTSIDE RECORDS SUMMARY | 2024-12-10 16:25 | XMS_ITS | Encounter Summary ---
Author Organization [facility] Address [address] [place] [address] Phone Care Team Providers Care Biodiesel Product Development Manager Name Role Phone Yesica Kowalski MD Primary Care Provider [phone] Encounter Details Date Type Department Care Team (Late st Contact Info) Description 04/17/2012 Documentation [facility] [place] [address] [place], [place] [phone] Family Medicine, Physician [address], [place] [address] Social History Tobacco Use Types Packs/Day Years [...] on filedocumented in this encounter Care Teams Biodiesel Product Development Manager Relationship Specialty Start Date End Date Yesica Kowalski MD [address] [facility] [place] [address] PCP - General 06/22/17 02/22/23 documented as of this encounter
--- OUTSIDE RECORDS SUMMARY | 2024-12-10 16:25 | XMS_ITS | Encounter Summary ---
Author Organization [facility] Address [address] [place] [address] Phone Care Team Providers Care Branch Lending Manager Name Role Phone Yesica Kowalski MD Primary Care Provider [phone] Encounter Details Date Type Department Care Team (Late st Contact Info) Description 01/15/2012 Documentation [facility] [place] Family Medicine [address] [place], [place] [phone] Family Medicine, Physician [address], [place] [address] Social History Tobacco Use Types Packs/Day Years [...] on filedocumented in this encounter Care Teams Branch Lending Manager Relationship Specialty Start Date End Date Yesica Kowalski MD [address] [facility] [place] [address] PCP - General 06/22/17 02/22/23 documented as of this encounter
--- OUTSIDE RECORDS SUMMARY | 2024-12-10 16:25 | XMS_ITS | Encounter Summary ---
Author Organization [facility] Address [address] [place] [address] Phone Care Team Providers Care Public Health Sanitarian Name Role Phone Yesica Kowalski MD Primary Care Provider [phone] Encounter Details Date Type Department Care Team (Late st Contact Info) Description 04/17/2012 Documentation [facility] [place] Family Medicine [address] [place], [place] [phone] Family Medicine, Physician [address], [place] [address] Social History Tobacco Use Types Packs/Day Years [...] on filedocumented in this encounter Care Teams Public Health Sanitarian Relationship Specialty Start Date End Date Yesica Kowalski MD [address] [place] [address] PCP - General 06/22/17 02/22/23 documented as of this encounter
--- OUTSIDE RECORDS SUMMARY | 2024-12-10 16:25 | XMS_ITS | Encounter Summary ---
Author Organization [facility] Address [address] [place] [address] Phone Care Team Providers Care Stave Machine Tender Name Role Phone Yesica Kowalski MD Primary Care Provider [phone] Encounter Details Date Type Department Care Team (Late st Contact Info) Description 04/17/2011 [place] [facility] [place] [address] [place], [place] [phone] Family Medicine, Physician [address], [place] [address] Social History Tobacco Use Types Packs/Day Years [...] on filedocumented in this encounter Care Teams Stave Machine Tender Relationship Specialty Start Date End Date Yesica Kowalski MD [address] [place] [address] PCP - General 06/22/17 02/22/23 documented as of this encounter
--- OUTSIDE RECORDS SUMMARY | 2024-12-10 16:25 | XMS_ITS | Clinical Summary ---
Author Organization [facility] Address [address] [place] [address] Phone Care Team Providers Care Apartment House Manager Name Role Phone Unavailable Primary Care Provider Unavailabl e Immunizations Name Administration Dates Next Due DTP 06/12/1995, 4,1993,11/11 HPV, Quadrivalent 07/05/2012,04/16/2012 Hep B, ped/adol 08/14/1994,1993,1993 Hib (PRP-T) 11/12/1994, 4,03/23/1994,11/11 IPV 03/23/1994,1993 MMR 04/29/2010,12/12/1994 Meningococcal Conj (Menactra) MCV4P 05/08/2006 OPV 1993 Td (adult) (MBL), 2 Lf tetan us toxoid, PF, adsorbed 02/21/2005 Tdap 11/13/2008 Family History Relation Name Status Comments Brother 1 marko Alive Brother: Alive and well, Alive and well Brother 2 velma Alive Brother: Alive and well, Alive and well Father Father: Hyperte nsion Mother Alive Mother: Deafnes s Other Family history of Obesity, Family history of Hyperlipidemia, Family history of Diabetes mellitus, Family history of Autism Social History Tobacco Use Types Packs/Day Years Used Date Smoking Tobacco: Never Comments:Never smoker Comments Unknown Sex and Gender Information Value Date Recorded Sex Assigned at Not on file Legal Sex Female 4:51 PM EDT Gender Identity Not on file Sexual Orientation Not on file Last Filed Vital Signs Vital Sign Reading Time Taken Comments Blood Pressure 120/70 07/15/2013 12:00 AM EDT Pulse - - Temperature 36.4 ??C (97.6 ??F) 07/05/2012 12:00 AM E DT Respiratory Rate - - Oxygen Saturation - - Inhaled Oxygen Concentration - - Weight 49.4 kg (109 lb) 07/15/2013 12:00 AM EDT Height 153.7 cm (5' 0.5 ) 07/15/2013 12:00 AM ED T Body Mass Index 20.94 07/15/2013 12:00 AM EDT Plan of Treatment Health Maintenance Due Date Last Done Comments IPV Vaccines (4 of 4 - 4-dose series) 1997 03/23/1994, 1993, 1993 Consider Men B Vaccine (1 of 2 - Bexsero 2-dose series) 2009 Varicella Vaccines (1 of 2 - 13+ 2-dose series) 05/27/2010 HPV Vaccines (3 - 3-dose series) 10/16/2012 07/05/2012, 04/16/2012 DTaP,Tdap,and Td Vaccines (7 - Td or Tdap) 11/13/2018 11/13/2008, 02/21/2005, 06/12/1995, Additional history exists Influenza Vaccines (#1) 2024 COVID-19 Vaccine ( season) 2024 Hepatitis B Vaccines Completed 08/14/1994, 1993, 1993 HIB Vaccines Completed 11/12/1994, 01/1994, 03/23/1994, Additional history exists Meningococcal Vaccine Aged Out 05/08/2006 No latrice tatyana eligible based on patient's age to complete this topic MMR Vaccines Completed 04/29/2010, 12/12/1994 Hepatitis A Vaccines Aged Out No long er eligible based on patient's age to complete this topic Men B Vaccine Aged Out No longer elig ible based on patient's age to complete this topic Pneumococcal Vaccine Aged Out No long er eligible based on patient's age to complete this topic Procedures * Due to [place] [employer] law, this organization might not be sharing sensitive test results. Procedure Name Priority Date/Time Associated Diagnosis Comments CHLAMYDIA AND GONORRHEA, AMPLIFIED Routine 07/16/2013 3:51 PM EDT from Last 3 Months or Most Recently Relevant to Health Maintenance Results * Due to [place] state law, this organization might not be sharing sensitive test results. * Chlamydia and Gonorrhoea, Amplified (07/16/2013 3:51 PM EDT) URINE CHLAMYDIA AMP PROBE NEGATIVE [facility] Comment: NO CHLAMYDIA TRACHOMATIS RNA DETECTED IN THIS PATIENT'S SAMPLE. ? (REFERENCE RANGE/NORMAL VALUE: NOT DETECTED) URINE GC AMP PROBE NEGATIVE [facility] Comment: NO NEISSERIA GONORRHOEAE RNA DETECTED IN THIS PATIENT'S SAMPLE. ? (REFERENCE RANGE/NORMAL VALUE: NOT DETECTED) ? NOTE: THIS TEST USES MEDICAL RECORD CODER-MEDIATED AMPLIFICATION METHOD TO DETECT rRNA FROM C.TRACHOMATIS AND N.GONORRHOEAE. A NEGATIVE RESULT DOES NOT PRECLUDE INFECTION. THE APTIMA COMBO 2 ASSAY IS NOT INTENDED FOR THE EVALUATION OF SUSPECTED SEXUAL ABUSE OR FOR OTHER MEDICO LEGAL INDICATIONS. THERAPEUTIC FAILURE OR SUCCESS CANNOT BE DETERMINED WITH THE APTIMA COMBO 2 ASSAY SINCE NUCLEIC ACID MAY PERSIST FOLLOWING APPROPRIATE ANTIMICROBIAL THERAPY. IN THE CASE OF A NEGATIVE URINE RESULT, TESTING OF AN ENDOCERVICAL (FEMALE) OR URETHRAL (MALE) SPECIMEN IS RECOMMENDED IF THERE IS HIGH CLINICAL SUSPICION OF INFECTION. 07/16/2013 3:51 PM EDT Narrative [facility] - 07/16/2013 3:51 PM EDT URINE CHLAMYDIA GC AMP PROBE us Yesica Kowalski MD LAB MICROBIOLOGY - GENERAL ORD ERABLES Final Result [facility] [address] [place] [address], [place] from Last 3 Months or Most Recently Relevant to Health Maintenance
--- OUTSIDE RECORDS SUMMARY | 2024-12-10 16:25 | XMS_ITS | Encounter Summary ---
Author Organization [facility] Address [address] [place] [address] Phone Care Team Providers Care Superintendent Pressure Name Role Phone Yesica Kowalski MD Primary Care Provider Encounter Details Date Type Department Care Team (Late st Contact Info) Description 08/08/2017 Conversion Encounter [facility] [address] [place] [address] Social History Tobacco Use Types Packs/Day Years [...] on filedocumented in this encounter Care Teams Superintendent Pressure Relationship Specialty Start Date End Date Yesica Kowalski MD [address] [place] [address] PCP - General 06/22/17 02/22/23 documented as of this encounter
--- OUTSIDE RECORDS SUMMARY | 2024-12-10 16:25 | XMS_ITS | Data Portability ---
Author Organization [place] - [facility], [facility] Address [address] [address] Care Team Providers Care Insulation Installer Name Role Phone LYNDON LEE Primary Care Provider [phone] Assessment Encounter Date Assessment Date Assessment LastModified by Organization Details LastModified Time 04/17/2024 04/17/2024 Bilateral cerumen impaction removed with instruments. Patient tolerated procedure well. following up as needed for repeat cerumen impaction. Q-tip avoidance is encouraged. I do not think there is any evidence of TM abnormality to suggest cholesteatoma. Concern of otalgia is best explained by TMJ. She does have clicking bilaterally and admits to gum chewing. Recommended use of anti-inflammat ories like Motrin, warm compress dental consult and gum chewing avoidance. Intraoral examination was otherwise benign [email or web address] Not available 04/17/2024 17:06:22 Plan of Treatment Reminders Order Date Submit Date Provider Last Modified By Organization Details Last Modified Time Details Appointments None record ed. Lab None record ed. Referral None record ed. Procedures None record ed. Surgeries None record ed. Imaging None record ed. Medication Orders None record ed. Patient TargetsNo targets recorded. Patient InstructionsNo instructions recorded. Reason for Referral None Reported. Results Created Date Observation Date Name Description Value Unit Range Abnormal Flag Note LastModifiedBy Organization Detail LastModifiedTime 07/03/20 24 09/23/2021 imagi ng/di agnos tic resul t No observ ation record ed. [email or web address] Not Available 13:48:24 07/03/20 24 09/23/2021 imagi ng/di agnos tic resul t No observ ation record ed. [email or web address] Not Available 13:48:26 Result Notes None recorded. 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 Procedures Surgical History Date Name Laterality Status Provider Name and Address Organization Details Recorded Time 04/17/2024 Wax_DP completed KOSTA NANCE MD [address] [place] [address], [phone], [facility] 04/17/2024 15:10:59 Imaging Results Imaging Date Name Status LastModified by [facility]iz [facility] Details LastModified Time 09/23/2021 imaging/diag nostic result completed Information not available 07/03/2024 13:48:24 09/23/2021 imaging/diag nostic result completed Information not available 07/03/2024 13:48:26 Procedure Notes None recorded. Medical Equipment None Reported. Medications Name Sig Start Date Stop Date Status Note LastModified by Organization Details LastModified Time amoxicillin 500 mg capsule TAKE 1 CAPSULE BY MOUTH TWICE A DAY FOR 10 DAYS active Not Available Not Available No t Available prednisone 10 mg tablet PLEASE SEE ATTACHED FOR DETAILED DIRECTIONS active Not Available Not Available N ot Available cetirizine 10 mg tablet TAKE 1 TABLET BY MOUTH ONCE DAILY NEEDED FOR ALLERGY SYMPTOMS active Not Available Not Available No t Available azithromycin 250 mg tablet TAKE 2 TABLETS BY MOUTH TODAY, THEN TAKE 1 TABLET DAILY FOR 4 DAYS DIRECTED active Not Available Not Available No t Available prednisone 20 mg tablet TAKE 1 TABLET BY MOUTH 2 TIMES A DAY FOR 5 DAYS active Not Available Not Available N ot Available triamcinolon e acetonide 0.1 % topical cream APPLY TO AFFECTED AREA TWICE A DAY FOR 2 WEEKS active Not Available Not Available No t Available amoxicillin 500 mg tablet TAKE 1 TABLET BY MOUTH TWICE A DAY FOR 7 DAYS active Not Available Not Available No t Available triamcinolon e acetonide 0.1 % dental paste USE 1 APPLICATION (DENTAL) 2 TIMES PER DAY ( NEEDED FOR MOUTH IRRITATION) FOR 14 DAYS active Not Available Not Available Not Available dicyclomine 20 mg tablet TAKE 1 TABLET BY MOUTH EVERY 8 TO 10 HOURS NEEDED FOR ABDOMINAL PAIN FOR 30 DAYS active Not Available Not Available No t Available norethindron e (contracepti ve) 0.35 mg tablet TAKE 1 TABLET BY MOUTH EVERY DAY active Not Available Not Available No t Available ondansetron 4 mg disintegrati ng tablet DISSOLVE 1 TABLET BY MOUTH EVERY 8 HOURS NEEDED FOR NAUSEA AND VOMITING active Not Available Not Available No t Available cefdinir 300 mg capsule TAKE 1 CAPSULE (300 MG TOTAL) BY MOUTH TWO TIMES A DAY FOR 7 DAYS. active Not Available Not Available Not Available neomycin-sharan ymyxin-hydro carlos 3.5 mg-10,000 unit/mL-1 % ear drops,susp ADMINISTER 3 DROPS INTO THE LEFT EAR 3 (THREE) TIMES A DAY FOR 10 DAYS FOR 7-10 DAYS. active Not Available Not Available No t Available ciprofloxaci n 0.3 %-dexamethas one 0.1 % ear drops,suspen cristóbal INSTILL 4 DROPS INTO AFFECTED EAR(S) TWICE A DAY FOR 7 DAYS active Not Available Not Available N ot Available Vitals Date Recorded Body height Body mass index (BMI) Body weight Provider Name and Address Organization Details Last Updated DateTime 04/17/2024 154.94 cm 21.7 kg/m2 11880.12 g Amee Yan [place] - [facility] 04/17/2024 16:38:06 Social History None recorded. Functional Status None recorded. Mental Status None recorded. Family History Nothing Reported. Medical History No medical history recorded. Gynecological HistoryNo gynecological history recorded. Obstetrics History GPAL:G 0 P 0 0 0 0 Past Encounters Encounter ID Performer Location Encounter Start Date Encounter Closed Date Diagnosis/Indication Diagnosis SNOMED-CT Code Diagnosis ICD10 Code Diagnosis Note [id number] KOSTA NANCE MD [facility] [address] [place] [address] 04/17/2024 15:47:51 04/18/2024 08:52:36 Impacted cerumen of bilateral ears 9068806408 985334 H61.23 Bilateral referred otalgia of ears 8107471364 826897 H92.03 Health Concerns Section Related Observation LastModified by Organization Detai ls LastModified Time None Recorded Concern Status LastModified by Organization Details LastModified Time None Recorded Advance Directives Directive None Recorded Payers Encounter Date Sequence Insurance Name Policy Number Policy Gibson Covered Member ID Gibson Member ID Guarantor Name 04/17/2024 1 [facility] [id number] Sierra Hernández [id number] Sierra Hernández Notes Date Note Type Note Provider Name and Address Organization Details Recorded Time text/html otalgiaaround 01/2024 developed foul smelling right sided otorrhea and itchyurgent visit x 5 with rx 4 different PO abx and 2 topical drops.felt decreased hearing on right and left03/27/2024 - Temporal bone ct [facility] - under developed right mastoid. right prussak soft tissue and blunt scutum cannot r/o cholesteatomahearing improved with flush in ER KOSTA NANCE MD [address] [place] [address], [place], [address], [place] - [facility] 04/17/2024 17:06:45 OBGyn Episode No OBEpisode recorded.
== END 2024-12-10 14:47 | disposition home or self-care (01) ==
PROVIDERS: PCP Internal Medicine
DX: J39.9 Disease of upper respiratory tract, unspecified (principal); R09.81 Nasal congestion; H92.01 Otalgia, right ear; H65.93 Unspecified nonsuppurative otitis media, bilateral; R06.2 Wheezing

== ENCOUNTER 2024-12-30 13:27 | Outpatient (AMB) | payer BC, SELFPAY ==
--- NOTE | 2024-12-30 13:28 | MHC.PC.OV ---
Vital Signs 12/30/24 13:29 Height 5 ft 1 in Weight 127 lb 8 oz BMI 24.1 BP 116/76 Blood Pressure Location Lt brachial Position Sitting Pulse 78 Pulse Source Pulse Oximeter Pulse Oximetry (%) 97 Oxygen Delivery Method Room Air Intake Visit Reasons: lingering cough and congestion Interactive Art Director Required: No Accompanied by: Self / Same As Patient Allergies No Known Allergies Allergy (Verified 12/30/24 14:31) Medication List - Last Reconciled 12/30/24 by PETER Gomes albuterol sulfate 90 mcg/actuation 2 puffs inhalation Q6H PRN dicyclomine 20 mg PO Q8-10H PRN 30 days fluticasone propionate 50 mcg/actuation 1 spray intranasal BID tramadol 50 mg PO BID PRN 30 days Tobacco use date assessed: 12/30/24 Dental Screening Dental Screen Date: 12/30/24 HPI lingering cough and congestion HPI Details Patient is a 29-year-old female that is presenting with ongoing cough and congestion Patient was seen last in the office on 12/10/24 and was diagnosed with Flu A She patient reports that she started getting better and now she feels like she getting sick again Her coughing has increased especially at night She still has mild pain behind her right ear She is concern that she might be getting bronchitis-similar to what happened to her in the past On exam: the patient was noted to have rhonchi in the left lower lobe She reports that her shortness of breath is mild Will start the patient on Doxycycline 100 mg to cover pneumonia The patient to contact the office if her symptoms or not resolving Will consider getting a xray if symptoms not resolving PFS Medical History Skin lesion Upper respiratory tract infection History of gestational diabetes Surgical History History of foot surgery History of wisdom tooth extraction Family History Father Hypertension Mother In good health Maternal Grandfather Lung cancer Paternal Grandmother Ovarian cancer Diabetes Paternal Grandfather No problems noted. Maternal Grandmother Stroke Family/Other FH: mental illness Brother No problems noted. Brother No problems noted. Son No problems noted. Daughter No problems noted. Other Mental health problem Social History Housing: House Alcohol intake: never Patient Tobacco Use Status: Former Tobacco user Tobacco use type: Cigarette Cigarettes Per Day: 1 e-Cigarette/Vaping Use: Currently Using Second Hand Smoke Exposure: Yes Substance Use Type: Marijuana service: No Current occupational status: unemployed Cognitive needs: No Hearing needs: No Vision needs: No Questionnaire PHQ-9 Over the last 2 weeks, how often have you been bothered by any of the following problems? 1. Little interest or pleasure in doing things: not at all 2. Feeling down, depressed, or hopeless: not at all 3. Trouble falling or staying asleep, or sleeping too much: not at all 4. Feeling tired or having little energy: not at all 5. Poor appetite or overeating: not at all 6. Feeling bad about yourself - or that you are a failure or have let yourself or your family down: not at all 7. Trouble concentrating on things, such as reading the newspaper or watching television: not at all 8. Moving or speaking so slowly that other people could have noticed. Or the opposite - being so fidgety or restless that you have been moving around a lot more than usual: not at all 9. Thoughts that you would be better off or of hurting yourself in some way: not at all Total score: 0 Depression Screening Interpretation: Negative Depression Screening Done: Yes 81706 - PHQ-9 Billing: Yes Source: Developed by Drs. Fadi Miller, Colleen Grullon, [place] Arroyo and colleagues, with an educational macarena from [employer]. Thrive Questionnaire Date Thrive assessed: 12/30/24 I am a: Patient What is your living situation today?: I have a steady place to live Within the past 12 months, did the food you bought not last and you didn't have the money to get more?: Never true Within the past 12 months, did you worry whether your food would run out before you got money to buy more?: Never true Do you have trouble paying for medicines?: No Do you have trouble getting transportation to medical appointments?: No Do you have trouble paying your heating and electricity bill?: No Do you have trouble taking care of your child, family member or friend?: No Do you have trouble with day-to-day activities such as bathing, preparing meals, shopping, managing finances, etc.?: No Are you currently unemployed and looking for a job?: No Are you interested in more education?: No Please select the resources that you would like help with: None Currently or been in a relationship where the following occur: No concerns reported THRIVE Score: 0 AUDIT C Alcohol Use Questionnaire (AUDIT-C) 1. How often do you have a drink containing alcohol?: Never Total Score: 0 Score Reviewed/Action Taken: No JOSE FRANCISCO-7 AMB Questionnaire JOSE FRANCISCO-7 Date JOSE FRANCISCO - 7 assessed: 12/30/24 Feeling nervous, anxious, or on edge: 0 = Not at all Not being able to stop or control worryin = Not at all Worrying too much about different things: 0 = Not at all Trouble relaxin = Not at all Being so restless that it is hard to sit still: 0 = Not at all Becoming easily annoyed or irritable: 0 = Not at all Feeling afraid as if something awful might happen: 0 = Not at all Total JOSE FRANCISCO-7 score (0-4 normal; 5-9 mild; 10-14 moderate; 15-21 severe): 0 Source: Developed by Drs. Fadi Miller, Colleen Grullon, [place]o and colleagues, with an educational macarena from [employer]. JOSE FRANCISCO-7 Assessment Billing JOSE FRANCISCO-7 Assessment Tool: JOSE FRANCISCO-7 Assessment 87131 Review of Systems Const Details: Denies chills, Denies fatigue, Denies fever(s), Denies headache(s) and Denies weakness HEENT Denies change in vision, Denies dizziness, Denies headache(s), Denies hearing loss, Denies nasal congestion, Denies sinus pain, Denies sinus pressure and Denies sore throat Card Denies chest pain, Denies lightheadedness, mild dyspnea and Denies other (palpitations) Resp + cough worse at night, mild dyspnea and Denies wheezing GI Denies abdominal pain, Denies melena, Denies hematochezia, Denies change in bowel habits, Denies dyspepsia and Denies nausea Denies hematuria and Denies dysuria Musc Denies abnormal gait, Denies myalgias, Denies arthralgias, Denies numbness and Denies tingling Skin/Breast Denies rash, Denies unusual bruising and Denies wounds Physical exam (Primary Care) Vital Signs: Last Vital Signs Pulse 78 12/30/24 13:29 BP 116/76 12/30/24 13:29 Pulse Ox 97 12/30/24 13:29 Oxygen Delivery Method Room Air 12/30/24 13:29 BMI result Body Mass Index 24.1 Tobacco/Smoking Status: Tobacco use Status Tobacco use date assessed 12/30/24 12/30/24 13:31 Patient Tobacco Use Status Former Tobacco user 12/30/24 13:31 Tobacco use type Cigarette 12/30/24 13:31 e-Cigarette/Vaping Use Currently Using 12/30/24 13:31 PHQ-9: PHQ-9 Score PHQ-9: Total score 0 12/30/24 14:43 Depression Screening Interpretation: Negative Thrive Assessment: Date of Thrive Assessment Date Thrive assessed 12/30/24 12/30/24 13:31 Currently or been in a relationship where the following occur: No concerns reported Const Other: General: no acute distress, well developed, alert and awake Nutritional Appearance: well nourished Orientation/consciousness: patient oriented x3 HENMT Head: Yes normocephalic and Yes atraumatic Ears: hearing grossly normal bilaterally and TM's normal bilaterally General nose exam: Normal external nose present and erythema nares present Mouth: Normal oral and palatal mucosa present and moist mucous membranesl Throat: Yes oropharynx normal Eyes Pupils: Equal, round and reactive pupils present and Pupil accommodation reflex normal EOM: EOMs intact bilaterally Neck Neck: Yes normal visual inspection, Yes no lymphadenopathy and Yes trachea midline Thyroid: Thyroid normal Carotids: no bruits Lymphatic: no lymphadenopathy noted Chest Chest palpation & inspection: normal inspection of the chest Resp Effort & Inspection: normal respiratory effort Auscultation: left lower lobe rhonchi Cardio Rate: regular rate Rhythm: regular rhythm Heart sounds: S1 normal heart sound present, S2 normal heart sound present, no gallops, no murmurs and no rubs Bruits: no abdominal aortic bruits and no carotid bruits GI Palpation (GI): No Abdominal aortic bruit present, Soft to palpation, nontender, No hepatosplenomegaly present and No Rebound tenderness present Auscultation: normal bowel sounds General: Yes no CVA tenderness Coding Level of Care Code Est Pt Level 3 (51810) Diagnoses Pneumonia of left lower lobe due to infectious organism J18.9 Pneumonia type: due to unspecified organism Laterality: left Lung location: lower lobe of lung Nasal congestion R09.81 Right ear pain H92.01 Laterality: right Additional Codes JOSE FRANCISCO-7 Assessment Billing - JOSE FRANCISCO-7 Assessment Tool: JOSE FRANCISCO-7 Assessment 49096 ([id number]) PHQ-9 - 71967 - PHQ-9 Billing: Yes ([id number]) Time Spent (min) 28 Assessment & Plan Assessment & Plan (1) Pneumonia: Code(s): J18.9 - Pneumonia, unspecified organism Category: Medical Qualifiers: Pneumonia type: due to unspecified organism Laterality: left Lung location: lower lobe of lung Qualified Code(s): J18.9 - Pneumonia, unspecified organism Plan: The patient diagnosed with flu A couple weeks ago, symptoms started getting better then started getting worse again Left lower lobe abnormal breath sounds heard. Will cover the patient for pneumonia. Doxycycline 100 mg BID ordered. The patient to contact the office if symptoms not relenting. Will consider doing a chest xray (2) Nasal congestion: Code(s): R09.81 - Nasal congestion Category: Medical Plan: Continue flonase nose spray and loratadine 10 mg daily Increased fluids intake (3) Otalgia: Code(s): H92.09 - Otalgia, unspecified ear Category: Medical Qualifiers: Laterality: right Qualified Code(s): H92.01 - Otalgia, right ear Plan: May use NSAIDS otc as needed for pain Medications: New doxycycline hyclate 100 mg PO BID 7 days 14 caps 0RF
[2024-12-30 13:29] VITALS: BP 116/76; PULSE 78; O2SAT 97; BMI 24.1
--- OUTSIDE RECORDS SUMMARY | 2024-12-30 14:23 | XMS_ITS | Clinical Summary ---
Author Organization [facility] Address [address] [place] [address] Phone Care Team Providers Care Graining Press Operator Name Role Phone Unavailable Primary Care Provider Unavailabl e Immunizations Immunization Administration Dates Next Due DTP 06/12/1995, 4,1993,11/11 [...] - 4-dose series) 1997 03/23/1994, 1993, 1993 Varicella Vaccines (1 of 2 - 13+ [...] complete this topic Procedures * Due to [place] Defy[employer] law, this organization might not be sharing sensitive test results. Procedure Name Priority Date/Time Associated Diagnosis Comments CHLAMYDIA AND GONORRHEA, AMPLIFIED Routine 07/16/2013 3:51 PM EDT from Last 3 Months or Most Recently Relevant to Health Maintenance Results * Due to [place] Defy[employer] law, this organization might not be sharing sensitive test results. * Chlamydia and Gonorrhoea, Amplified (07/16/2013 3:51 PM EDT) URINE CHLAMYDIA AMP PROBE NEGATIVE [facility] Comment: NO CHLAMYDIA TRACHOMATIS RNA DETECTED IN THIS PATIENT'S SAMPLE. ? (REFERENCE RANGE/NORMAL VALUE: NOT DETECTED) URINE GC AMP PROBE NEGATIVE [facility] Comment: NO NEISSERIA GONORRHOEAE RNA DETECTED IN THIS PATIENT'S SAMPLE. ? (REFERENCE RANGE/NORMAL VALUE: NOT DETECTED) ? NOTE: THIS TEST USES VP CLINICAL-MEDIATED AMPLIFICATION METHOD TO DETECT rRNA FROM C.TRACHOMATIS [...] OF INFECTION. 07/16/2013 3:51 PM EDT Narrative [facility] - 07/16/2013 3:51 PM EDT URINE CHLAMYDIA GC AMP PROBE us Yesica Kowalski MD LAB MICROBIOLOGY - GENERAL ORD ERABLES Final Result [facility] [address] [place] [address], [place] from Last 3 Months or Most Recently Relevant to Health Maintenance
--- OUTSIDE RECORDS SUMMARY | 2024-12-30 14:23 | XMS_ITS | Encounter Summary ---
Author Organization [facility] Address [address] [place] [address] Phone Care Team Providers Care Thread Spinner Name Role Phone Yesica Kowalski MD Primary Care Provider [phone] Encounter Details Date Type Department Care Team (Late st Contact Info) Description 04/17/2012 Documentation [facility] [place] [address] [place], [place] [id number] Family Medicine, Physician [address] [place], [place] [address] Social History Tobacco Use Types Packs/Day Years [...] on filedocumented in this encounter Care Teams Thread Spinner Relationship Specialty Start Date End Date Yesica Kowalski MD [address] [place] [address] PCP - General 06/22/17 02/22/23 documented as of this encounter
--- OUTSIDE RECORDS SUMMARY | 2024-12-30 14:23 | XMS_ITS | Encounter Summary ---
Author Organization [facility] Address [address] [place] [address] Phone Care Team Providers Care Senior System Operator Name Role Phone Yesica Kowalski MD Primary Care Provider [phone] Encounter Details Date Type Department Care Team (Late st Contact Info) Description 01/15/2012 [place] [facility] [place] [address] [place], [place] [id number] Family Medicine, Physician [address] [place], [place] [address] Social History Tobacco Use Types Packs/Day Years [...] on filedocumented in this encounter Care Teams Senior System Operator Relationship Specialty Start Date End Date Yesica Kowalski MD [address] [facility] [place] [address] PCP - General 06/22/17 02/22/23 documented as of this encounter
--- OUTSIDE RECORDS SUMMARY | 2024-12-30 14:23 | XMS_ITS | Encounter Summary ---
Author Organization [facility] Address [address] [place] [address] Phone Care Team Providers Care Telecommunications Engineer Name Role Phone Yesica Kowalski MD Primary Care Provider Encounter Details Date Type Department Care Team (Late st Contact Info) Description 04/17/2012 [place]ation [facility] [place] [address] [place], [place] [phone] Family Medicine, Physician [address] [place], [place] [address] Social History Tobacco Use Types Packs/Day Years [...] on filedocumented in this encounter Care Teams Telecommunications Engineer Relationship Specialty Start Date End Date Yesica Kowalski MD [address] [facility] [place] [address] PCP - General 06/22/17 02/22/23 documented as of this encounter
--- OUTSIDE RECORDS SUMMARY | 2024-12-30 14:23 | XMS_ITS | Encounter Summary ---
Author Organization [facility] Address [address] [place] [address] Phone Care Team Providers Care Molder Name Role Phone Yesica Kowalski MD Primary Care Provider [phone] Encounter Details Date Type Department Care Team (Late st Contact Info) Description 06/21/2011 Documentation [facility] [place] [address] [place], [place] [address] Family Medicine, Physician [address] [place], [place] [address] Social History Tobacco Use Types Packs/Day Years [...] on filedocumented in this encounter Care Teams Molder Relationship Specialty Start Date End Date Yesica Kowalski MD [address] [facility] [place] [address] PCP - General 06/22/17 02/22/23 documented as of this encounter
--- OUTSIDE RECORDS SUMMARY | 2024-12-30 14:23 | XMS_ITS | Encounter Summary ---
Author Organization [facility] Address [address] [place] [address] Phone Care Team Providers Care Ethics Instructor Name Role Phone Yesica Kowalski MD Primary Care Provider [phone] Encounter Details Date Type Department Care Team (Late st Contact Info) Description 08/08/2017 Conversion Encounter [facility] [place] [address] [place] [address] Social History Tobacco Use Types Packs/Day Years [...] on filedocumented in this encounter Care Teams Ethics Instructor Relationship Specialty Start Date End Date Yesica Kowalski MD [address] [place] [address] PCP - General 06/22/17 02/22/23 documented as of this encounter
--- OUTSIDE RECORDS SUMMARY | 2024-12-30 14:23 | XMS_ITS | Encounter Summary ---
Author Organization [facility] Address [address] [place] [address] Phone Care Team Providers Care Transportation Worker Name Role Phone Yesica Kowalski MD Primary Care Provider [phone] Encounter Details Date Type Department Care Team (Late st Contact Info) Description 04/26/2012 Documentation [facility] [place] [address] [place], [place] [address] Family Medicine, Physician [address] [place], [place] [address] Social History Tobacco Use Types Packs/Day Years [...] on filedocumented in this encounter Care Teams Transportation Worker Relationship Specialty Start Date End Date Yesica Kowalski MD [address] [facility] [place] [address] PCP - General 06/22/17 02/22/23 documented as of this encounter
--- OUTSIDE RECORDS SUMMARY | 2024-12-30 14:23 | XMS_ITS | Data Portability ---
Author Organization [place] [facility], All[facility] Address [address] [address] Care Team Providers Care Technical Cable Jointer Name Role Phone LYNDON LEE Primary Care Provider [phone] Assessment Encounter Date Assessment Date Assessment LastModified [...] Address Organization Details Recorded Time Jaw pain 403448204 Active 2021 Jaw pain; Note: Date Diagnosed : 2 10:34 AM (R68.84) Not Available [facility] 4 02:40:01 Dysphonia 72431469 Active 2020 Hoarsenes s; Note: Date Diagnosed : 08/12/2021 11:27 AM (R49.0) Not Available [facility] 4 02:40:02 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 Procedures Surgical History Date Name Laterality Status Provider Name and Address Organization Details Recorded Time 04/17/2024 Wax_DP completed KOSTA NANCE MD [address] [place] [address], [phone], [facility] 04/17/2024 15:10:59 Imaging Results Imaging Date Name Status LastModified by [facility] Details LastModified Time 09/23/2021 imaging/diag nostic result [...] Updated DateTime 04/17/2024 154.94 cm 21.7 kg/m2 42876.12 g Amee Yan [place] - [facility] 04/17/2024 16:38:06 Social History None recorded. [...] Diagnosis Note 2572 KOSTA NANCE MD [facility] [address] [place] [address] 04/17/2024 15:47:51 04/18/2024 08:52:36 Impacted cerumen of bilateral ears 8481438972 143514 H61.23 Bilateral referred otalgia of ears 3989555864 729529 H92.03 Health Concerns Section Related Observation LastModified by Organization Detai ls LastModified Time None Recorded Concern Status LastModified by Organization Details LastModified Time None Recorded Advance Directives Directive None Recorded Payers Encounter Date Sequence Insurance Name Policy Number Policy Gibson Covered Member ID Gibson Member ID Guarantor Name 04/17/2024 1 [facility] [id number] Sierra Hernández [id number] Sierra Hernández Notes Date Note Type Note Provider Name and Address Organization Details Recorded Time text/html otalgiaaround 01/2024 developed foul smelling right sided otorrhea and itchyurgent visit x 5 with rx 4 different PO abx and 2 topical drops.felt decreased hearing on right and left03/27/2024 - Temporal bone [facility] - under developed right mastoid. right prussak soft tissue and blunt scutum cannot r/o cholesteatomahearing improved with flush in ER KOSTA NANCE MD [address] [place] [address], [place], [address], [place] - [facility] 04/17/2024 17:06:45 OBGyn Episode No OBEpisode recorded.
--- OUTSIDE RECORDS SUMMARY | 2024-12-30 14:23 | XMS_ITS | Encounter Summary ---
Author Organization [facility] Address [address] [place] [address] Phone Care Team Providers Care Culinary Internship Name Role Phone Yesica Kowalski MD Primary Care Provider [phone] Encounter Details Date Type Department Care Team (Late st Contact Info) Description 04/17/2011 Documentation [facility] [place] [address] [place], [place] [phone] Family Medicine, Physician [address], [place] [address] Social History Tobacco Use Types Packs/Day Years [...] on filedocumented in this encounter Care Teams Culinary Internship Relationship Specialty Start Date End Date Yesica Kowalski MD [address] [facility] [place] [address] PCP - General 06/22/17 02/22/23 documented as of this encounter
== END 2024-12-30 14:41 | disposition home or self-care (01) ==
PROVIDERS: PCP Internal Medicine
DX: J18.9 Pneumonia, unspecified organism (principal); R09.81 Nasal congestion; H92.01 Otalgia, right ear

== ENCOUNTER → 2024-12-30 13:27 | Outpatient (BNVA) | payer BC, SELFPAY | PROVIDERS: PCP Internal Medicine | DX: J18.9 Pneumonia, unspecified organism (principal); R09.81 Nasal congestion; H92.01 Otalgia, right ear | CPT/HCPCS: 96127 ==

== ENCOUNTER 2025-04-03 15:09 | Outpatient (REF) | payer BC, SELFPAY ==
[2025-04-03 17:57] LABS: TSH reflex Free T4 1.08 uIU/mL (0.32-4.0)
[2025-04-03 18:07] LABS: Folate 14.1 ng/mL (> or = 4.0); Vitamin B12 486 pg/mL (200-900)
[2025-04-08 12:38] LABS: Vitamin D 25-OH, D2 <4 ng/mL; Vitamin D 25-OH, D3 29 ng/mL; Vitamin D 25-OH, Total 29 ng/mL (30-100)
== END 2025-04-03 15:10 | disposition home or self-care (01) ==
LOC: HO.LAB 15:09
PROVIDERS: PCP Internal Medicine; Visit Provider Nurse Practitioner Family
DX: K21.9 Gastro-esophageal reflux disease without esophagitis (principal); R10.31 Right lower quadrant pain; R14.0 Abdominal distension (gaseous); R10.13 Epigastric pain; K59.00 Constipation, unspecified; E55.9 Vitamin D deficiency, unspecified
CPT/HCPCS: 36415; 82306; 82607; 82746; 84443

== ENCOUNTER 2025-04-03 15:09 | Outpatient (AMB) | payer BC, SELFPAY ==
--- OUTSIDE RECORDS SUMMARY | 2025-04-03 15:11 | XMS_ITS | Encounter Summary ---
Author Organization [facility] Address [address] [place] [address] Phone Care Team Providers Care Associate Buyer Name Role Phone Yesica Kowalski MD Primary Care Provider [phone] Encounter Details Date Type Department Care Team (Late st Contact Info) Description 01/15/2012 Documentation [facility] [place] [address] [place], [place] [phone] Family Medicine, Physician [address] [place], [place] [address] Social History Tobacco Use Types Packs/Day Years [...] on filedocumented in this encounter Care Teams Associate Buyer Relationship Specialty Start Date End Date Yesica Kowalski MD [address] [place] [address] PCP - General 06/22/17 02/22/23 documented as of this encounter
--- NOTE | 2025-04-03 15:17 | A.OFFVIS_ITS ---
Vital Signs 04/03/25 15:28 Height 5 ft 1 in Weight 127 lb BMI 24.0 BP 140/62 H Blood Pressure Location Rt brachial Position Sitting Pulse 90 Pulse Source Pulse Oximeter Pulse Oximetry (%) 97 Oxygen Delivery Method Room Air Intake Visit Reasons: Gastroesophageal reflux disease (GERD) Intake Note: ESTABLISHED PATIENT for GERD mgmt. SHAUNNA 11/26/23 GLORIA [facility]; C.O. GERD which has been evaluated and treated by PCP. Pt was given omeprazole which has helped greatly. Pt also reports that she has been experiencing B/L LQ abd pain which seems worse in the morning. Pt has hx of IBS which is treated with dicyclomine which is still helping her. Outbound Telemarketing Representative Required: No Accompanied by: Self / Same As Patient Allergies No Known Allergies Allergy (Verified 04/03/25 15:17) HPI HPI Gastroesophageal reflux disease (GERD): Details: 29-year-old female with past medical history of GERD, psoriasis, anxiety, history of kidney stones, chronic RLQ pain, lactose intolerance is here today for initial consultation. Patient was sent to us as her symptoms recently has been worse and unable to manage. Patient reports epigastric pain postprandially, postprandial abdominal bloating. Right lower quadrant pain afte r eating and sometimes the pain is there not related to meals. Patient denies any nausea or vomiting. Reports occasional constipation. Reports that dicyclomine is helping her with abdominal discomfort. Patient was seen years ago by GI provider no longer is in the practice. Recently patient was given omeprazole by her primary care provider and reports that she started taking it and seems to be helping. Patient does admit that she sometimes will binge on fast food and not always following up on healthy diet. Patient denies dyspepsia, dysphagia or odynophagia. Denies melena, hematochezia, unintentional weight loss or ribbon like stools. [facility] Medical History Skin lesion Upper respiratory tract infection History of gestational diabetes Surgical History History of foot surgery History of wisdom tooth extraction Family History Father Hypertension Mother In good health Maternal Grandfather Lung cancer Paternal Grandmother Ovarian cancer Diabetes Paternal Grandfather No problems noted. Maternal Grandmother Stroke Family/Other FH: mental illness Brother No problems noted. Brother No problems noted. Son No problems noted. Daughter No problems noted. Other Mental health problem Social History Housing: House Alcohol intake: never Patient Tobacco Use Status: Former Tobacco user Tobacco use type: Cigarette Cigarettes Per Day: 1 e-Cigarette/Vaping Use: Currently Using Second Hand Smoke Exposure: Yes Substance Use Type: Marijuana service: No Current occupational status: unemployed Cognitive needs: No Hearing needs: No Vision needs: No Review of Systems Const Denies weight gain and Denies weight loss ENT Reports no additional complaints, Denies dysphagia and Denies odynophagia Card Reports no additional complaints Resp Reports no additional complaints GI Denies abdominal pain, Denies belching, Denies melena, Denies bloating, Denies change in bowel habits, Denies dysphagia, Denies excessive flatus, Denies dyspepsia, Denies heartburn, Denies diarrhea, Denies loose stools, Denies nausea, Denies odynophagia and Denies vomiting Musc Reports no additional complaints Neuro Reports no additional complaints Psych Reports no additional complaints Endo Reports no additional complaints Physical Exam Vital Signs: Last Vital Signs Pulse 90 04/03/25 15:28 BP 140/62 H 04/03/25 15:28 Pulse Ox 97 04/03/25 15:28 Oxygen Delivery Method Room Air 04/03/25 15:28 BMI result Body Mass Index 24.0 Const General: healthy appearing, no acute distress and well developed Nutritional Appearance: well nourished Orientation/consciousness: patient oriented x3 Resp Effort & Inspection: normal respiratory effort, able to speak in complete sentences, no tracheal deviation and symmetric chest movement Auscultation: clear to auscultation bilaterally Cardio Rate: regular rate GI Inspection: Yes normal to inspection and No distended Palpation (GI): Soft to palpation, not firm, nontender and No hepatosplenomegaly present Auscultation: normal bowel sounds General: Yes no CVA tenderness Back/Spine/Pelvis Back: no CVA tenderness Skin General skin exam: elasticity normal, turgor normal and dry skin Neuro General: patient oriented x3 Psych Appearance: grossly normal Mental Status: mental status grossly normal Assessment & Plan Assessment & Plan (1) GERD (gastroesophageal reflux disease): Code(s): K21.9 - Gastro-esophageal reflux disease without esophagitis Category: Medical Qualifiers: Esophagitis presence: esophagitis presence not specified Qualified Code(s): K21.9 - Gastro-esophageal reflux disease without esophagitis (2) Abdominal pain: Code(s): R10.9 - Unspecified abdominal pain Category: Medical Qualifiers: Abdominal location: right lower quadrant Qualified Code(s): R10.31 - Right lower quadrant pain (3) Change in bowel habits: Code(s): R19.4 - Change in bowel habit Category: Medical (4) Bloating: Comment: Resolved Code(s): R14.0 - Abdominal distension (gaseous) Category: Medical (5) Postprandial epigastric pain: Code(s): R10.13 - Epigastric pain Plan Discussed with patient avoiding dietary triggers. Continue omeprazole daily. Staying upright for minimal 3 hours after meals discussed with patient. Long discussion with patient about changing her diet habits. Low FODMAP diet discussed with patient. List of food recommended as well as list of food to avoid given to patient. Will check vitamin-D, B12, check her thyroid. Patient will be sent for upper GI with barium swallow. Patient was encouraged to take dicyclomine only as needed as this may cause her to become more constipated. Increase fluid intake and activity to promote better bowel motility. Follow-up in 3-4 months, sooner on as needed basis. Patient is agreeable to this plan and verbalizes understanding of instructions. She was given the opportunity to ask questions and all questions answered. Orders: Orders [place] upper GI w Ba Swallow 04/03/25 K21.9 - Gastro-esophageal reflux disease without esophagitis Vitamin D 25-OH (D2 and D3) 04/03/25 E55.9 - Vitamin D deficiency, unspecified Vitamin B12 and Folate 04/03/25 R19.7 - Diarrhea, unspecified TSH reflex Free T4 04/03/25 K59.00 - Constipation, unspecified Medications: Refilled dicyclomine 20 mg PO Q8-10H PRN 90 tabs 1RF abdominal pain 30 days Coding Level of Care Code Est Pt Level 4 (03514) Diagnoses Gastroesophageal reflux disease, unspecified whether esophagitis present K21.9 Esophagitis presence: esophagitis presence not specified Right lower quadrant abdominal pain R10.31 Abdominal location: right lower quadrant Change in bowel habits R19.4 Bloating R14.0 Postprandial epigastric pain R10.13 Time Spent (min) 40 Comment 30 minutes spent with patient and additional 10 minutes spent reviewing her records
[2025-04-03 15:28] VITALS: BP 140/62; PULSE 90; O2SAT 97; BMI 24.0
== END 2025-04-03 15:54 | disposition home or self-care (01) ==
LOC: HO.HGI 15:10
PROVIDERS: PCP Internal Medicine; Visit Provider Nurse Practitioner Family
DX: K21.9 Gastro-esophageal reflux disease without esophagitis (principal); R10.31 Right lower quadrant pain; R19.4 Change in bowel habit; R14.0 Abdominal distension (gaseous); R10.13 Epigastric pain
CPT/HCPCS: 99214

== ENCOUNTER 2025-05-12 16:41 | Outpatient (AMB) | payer BC, SELFPAY ==
--- NOTE | 2025-05-12 16:46 | MHC.PC.OV ---
Vital Signs 05/12/25 16:47 Height 5 ft 1 in Weight 121 lb BMI 22.9 BP 110/60 Blood Pressure Location Lt brachial Position Sitting Intake Visit Reasons: Annual Exam Intake Note: Patient here for a physical exam Instructor Extension Work Required: No Accompanied by: Self / Same As Patient Allergies No Known Allergies Allergy (Verified 05/12/25 17:10) Medication List - Last Reconciled 05/12/25 by Stephanie Evans MD albuterol sulfate 90 mcg/actuation 2 puffs inhalation Q6H PRN dicyclomine 20 mg PO QID fluticasone propionate 50 mcg/actuation 1 spray intranasal BID Tobacco use date assessed: 12/30/24 Dental Screening Dental Screen Date: 12/30/24 HPI HPI Comments History of Present Illness Details The patient is a 29-year-old female presenting for a physical exam and evaluation of low back pain. 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 The pain worsened after participating in tug of war the following day. The patient describes the pain as localized to the lower back and buttocks, without radiation to the legs. She reports that tramadol and stretching have provided some relief, and sleeping flat has also been beneficial. She has not rested the back adequately due to her responsibilities as a mother of two and her exercise routine, which includes weight lifting. The patient has a history of allergic rhinitis, managed with Claritin and nasal spray, which have been effective in alleviating symptoms. She also takes dicyclomine, which has caused constipation, and manages this with probiotics and vitamin D. The patient has a history of foot surgery and reports ongoing pain after dropping a 15-pound weight on her foot, which remains bruised but not broken. She has had a tetanus vaccine in 2019 and does not consume alcohol or smoke. [facility] Medical History (Updated 05/12/25 @ 17:27 by Stephanie Evans MD) Skin lesion Upper respiratory tract infection History of gestational diabetes Surgical History History of foot surgery History of wisdom tooth extraction Family History Father Hypertension Mother In good health Maternal Grandfather Lung cancer Paternal Grandmother Ovarian cancer Diabetes Paternal Grandfather No problems noted. Maternal Grandmother Stroke Family/Other FH: mental illness Brother No problems noted. Brother No problems noted. Son No problems noted. Daughter No problems noted. Other Mental health problem Social History Housing: House Alcohol intake: never Patient Tobacco Use Status: Former Tobacco user Tobacco use type: Cigarette Cigarettes Per Day: 1 e-Cigarette/Vaping Use: Currently Using Second Hand Smoke Exposure: Yes Substance Use Type: Marijuana service: No Current occupational status: unemployed Cognitive needs: No Hearing needs: No Vision needs: No Questionnaire PHQ-9 Over the last 2 weeks, how often have you been bothered by any of the following problems? 1. Little interest or pleasure in doing things: not at all 2. Feeling down, depressed, or hopeless: not at all 3. Trouble falling or staying asleep, or sleeping too much: not at all 4. Feeling tired or having little energy: not at all 5. Poor appetite or overeating: not at all 6. Feeling bad about yourself - or that you are a failure or have let yourself or your family down: not at all 7. Trouble concentrating on things, such as reading the newspaper or watching television: not at all 8. Moving or speaking so slowly that other people could have noticed. Or the opposite - being so fidgety or restless that you have been moving around a lot more than usual: not at all 9. Thoughts that you would be better off or of hurting yourself in some way: not at all Total score: 0 Depression Screening Interpretation: Negative Depression Screening Done: Yes 17010 - PHQ-9 Billing: Yes Source: Developed by Drs. Fadi Miller, Colleen Grullon, [place] and colleagues, with an educational macarena from [employer]. Thrive Questionnaire Date Thrive assessed: 05/07/25 I am a: Patient What is your living situation today?: I have a steady place to live Within the past 12 months, did the food you bought not last and you didn't have the money to get more?: Never true Within the past 12 months, did you worry whether your food would run out before you got money to buy more?: Never true Do you have trouble paying for medicines?: No Do you have trouble getting transportation to medical appointments?: No Do you have trouble paying your heating and electricity bill?: No Do you have trouble taking care of your child, family member or friend?: No Do you have trouble with day-to-day activities such as bathing, preparing meals, shopping, managing finances, etc.?: No Are you currently unemployed and looking for a job?: No Are you interested in more education?: No Please select the resources that you would like help with: None Currently or been in a relationship where the following occur: No concerns reported THRIVE Score: 0 AUDIT C Alcohol Use Questionnaire (AUDIT-C) 1. How often do you have a drink containing alcohol?: Never Total Score: 0 Score Reviewed/Action Taken: No JOSE FRANCISCO-7 AMB Questionnaire JOSE FRANCISCO-7 Date JOSE FRANCISCO - 7 assessed: 12/30/24 Feeling nervous, anxious, or on edge: 0 = Not at all Not being able to stop or control worryin = Not at all Worrying too much about different things: 0 = Not at all Trouble relaxin = Not at all Being so restless that it is hard to sit still: 0 = Not at all Becoming easily annoyed or irritable: 0 = Not at all Feeling afraid as if something awful might happen: 0 = Not at all Total JOSE FRANCISCO-7 score (0-4 normal; 5-9 mild; 10-14 moderate; 15-21 severe): 0 Source: Developed by Drs. Fadi Miller, Colleen Grullon, [place] and colleagues, with an educational macarena from [employer]. Review of Systems Const All systems reviewed & are unremarkable except as noted in HPI and below Card Denies chest pain at rest, Denies chest pain with activity, Denies edema, Denies irregular heart rhythm, Denies claudication, Denies dyspnea, Denies dyspnea on exertion, Denies orthopnea, Denies paroxysmal nocturnal dyspnea and Denies slow heart rate Resp Denies cough, Denies dyspnea and Denies dyspnea on exertion GI Denies abdominal pain, Denies change in bowel habits, Denies excessive flatus, Denies nausea and Denies vomiting Denies urinary incontinence, Denies urinary hesitancy and Denies urinary urgency Musc Reports back pain, Denies atrophy, Denies deformity and Denies limited range of motion Skin/Breast Denies bleeding lesions, Denies changing lesions and Denies rash Physical exam (Primary Care) Vital Signs: Last Vital Signs BP 110/60 05/12/25 16:47 BMI result Body Mass Index 22.9 Tobacco/Smoking Status: Tobacco use Status Tobacco use date assessed 12/30/24 05/12/25 16:51 Patient Tobacco Use Status Former Tobacco user 05/12/25 16:51 Tobacco use type Cigarette 05/12/25 16:51 e-Cigarette/Vaping Use Currently Using 05/12/25 16:51 PHQ-9: PHQ-9 Score PHQ-9: Total score 0 05/12/25 17:15 Depression Screening Interpretation: Negative Thrive Assessment: Date of Thrive Assessment Date Thrive assessed 05/07/25 05/12/25 16:51 Currently or been in a relationship where the following occur: No concerns reported Resp Effort & Inspection: normal respiratory effort Auscultation: clear to auscultation bilaterally Cardio Jugular venous distension: no JVD Rate: regular rate Rhythm: regular rhythm Heart sounds: S1 normal heart sound present and S2 normal heart sound present Extrem General: Yes full ROM Coding Level of Care Code Est Pt Level 3 (92963) Est Pt Prev Care 18-39y(74108) Diagnoses Physical exam Z00.00 Lumbar pain M54.50 Left foot pain M79.672 Additional Codes PHQ-9 - 93119 - PHQ-9 Billing: Yes ([id number]) Time Spent (min) 33 Assessment & Plan Assessment & Plan (1) Physical exam: Code(s): Z00.00 - Encounter for general adult medical examination without abnormal findings Category: Medical (2) Lumbar pain: Code(s): M54.50 - Low back pain, unspecified Category: Medical (3) Left foot pain: Code(s): M79.672 - Pain in left foot Category: Medical Plan The plan for the patient's low back pain includes initiating physical therapy to provide exercises that can be performed at home. A muscle relaxer will be prescribed to manage acute episodes of pain, with the caution that it may cause drowsiness. Additionally, a refill of tramadol will be provided for pain management, with instructions to use it sparingly. For the foot pain, an x-ray will be conducted to assess any underlying issues due to the recent trauma from the dropped weight. The patient will continue using Claritin and nasal spray for allergic rhinitis as they have been effective. Patient was informed and verbally consented to the use of an ambient scribe for clinic note documentation during this visit. Orders: Orders PT Evaluation and Treatment 05/12/25 M54.50 - Low back pain, unspecified XR foot LT 2V 05/12/25 M79.672 - Pain in left foot Medications: New tramadol 50 mg PO BID PRN 20 tabs 0RF pain 30 days M54.50 - Low back pain, unspecified cyclobenzaprine 5 mg PO BEDTIME PRN 7 tabs 0RF muscle spasm 7 days M54.50 - Low back pain, unspecified
[2025-05-12 16:47] VITALS: BP 110/60; BMI 22.9
== END 2025-05-12 17:29 | disposition home or self-care (01) ==
LOC: HO.HMCH 16:42
PROVIDERS: PCP Internal Medicine; Visit Provider Internal Medicine
DX: Z00.00 Encounter for general adult medical examination without abnormal findings (principal); M54.50 Low back pain, unspecified; M79.672 Pain in left foot

== ENCOUNTER → 2025-05-12 16:41 | Outpatient (BNVA) | payer BC, SELFPAY | PROVIDERS: PCP Internal Medicine; Visit Provider Internal Medicine | DX: Z00.00 Encounter for general adult medical examination without abnormal findings (principal); M54.50 Low back pain, unspecified; J30.9 Allergic rhinitis, unspecified; M79.672 Pain in left foot | CPT/HCPCS: 96127 ==

== ENCOUNTER 2025-06-24 09:05 | Outpatient (RCR) | payer OTHER, BC, SELFPAY ==
--- NOTE | 2025-06-10 15:25 | MHC.PT.EP ---
[facility] [place] Office [place] Office [place] Office [address] Shahla Chapman [address] [phone] F: [phone] F: [phone] F: [phone] F: [phone] Physical Therapy Plan of Care Date of Evaluation: 06/10/25 Date of Surgery: NA Diagnosis: LBP Assessment: Pt IS 29 YO F TO PT FROM DR YANIRA NESBITT WITH LBP. PRESENTS GENERALLY HYPERFLEXIBLE WITH SOME DECREASE IN CORE STRENGTH AND PELVIC ASYMMETRY. SHOULD BENEFIT FROM PT TO ADDRESS THESE ISSUES WITH MONITORING OF PELVIC SYMMETRY AND WORK ON CORE STRENGTH AND STABILIZATION Frequency and Duration: The patient will be seen 2x/wk Short Term Goals: 1. INCREASED AWARENESS OF BACK CARE 2. Pt TO PERF 2-3 TASKS WITH PROPER BODY MECH [facility] Goals: 1. DECREASED BACK PAIN WITH ADLS 2. I HEP WITH DC EX PLAN Treatment Plan: Modalities to reduce pain, spasms and effusion. Manual therapy to restore motion and function. Therapeutic exercise to improve strength and flexibility. Neuromuscular re-education for posture and balance. Therapeutic activities to return to functional activities of daily living. Electronically signed by: JAGJIT AARON PT Please sign and return to therapist. Thank you for your referral.
--- NOTE | 2025-08-19 13:37 | MHC.PT.DC ---
[facility] [place] Office [place] Office [place] Office [address] Shahla Chapman [address] [phone] F: [phone] F: [phone] F: [phone] F: [phone] Physical Therapy Discharge Report Diagnosis: LBP Date of Surgery: NA Date of Evaluation: 06/10/25 Date of Discharge: 08/19/25 Treatments to Date: 5 Cancellations to Date: No Shows to Date: Discharge Status: Improved Function Independent with HEP Patient Elected to Stop Discharge Summary: Pt LAST SEEN 06/24 WHEN SHE REPORTED FEELING BETTER OVERALL . PER ASSESSMENT AT THAT APPT L GLUT A LITTLE WEAKER IN STAND WITH [address] HIP. STARTS BACK TO SCHOOL NEXT WEEK. ASSESS TRANSITION . Pt THEN CANCELLED APPT ON 07/03/25 AND NO FURTHER APPTS SCHEDULED Electronically signed by: JAGJIT AARON PT Please sign and return to therapist. Thank you for your referral.
== END 2025-08-19 13:38 | disposition home or self-care (01) ==
LOC: HO.PT 09:05
PROVIDERS: PCP Internal Medicine; Visit Provider Internal Medicine
DX: M54.50 Low back pain, unspecified (principal)
CPT/HCPCS: 97110; 97112; 97140; 97161

== ENCOUNTER 2025-07-28 16:03 | Outpatient (AMB) | payer BC, SELFPAY ==
[2025-07-28 16:04] VITALS: BP 116/70; PULSE 74; O2SAT 99; BMI 22.3
--- NOTE | 2025-07-28 16:04 | A.OFFVIS_ITS ---
Vital Signs 07/28/25 16:04 Height 5 ft 1 in Weight 118 lb BMI 22.3 BP 116/70 Blood Pressure Location Lt brachial Position Sitting Pulse 74 Pulse Source Pulse Oximeter Pulse Oximetry (%) 99 Oxygen Delivery Method Room Air Intake Visit Reasons: 4 mos FUV. GERD + IBS mgmt. Intake Note: Est pt for mgmt of chronic abd pain + GERD. Labs done, Imaging scheduled for next month. CC: Pt states that she is doing well overall with making dietary and lifestyle changes. Sx are well managed with occasional episodes of abd cramping. Pt has questions regarding SIBO testing based on family member input. Clerk Analyst Required: No Accompanied by: Self / Same As Patient Allergies No Known Allergies Allergy (Verified 07/28/25 16:04) HPI HPI 4 mos FUV. GERD + IBS mgmt.: Details: LAST VISIT: GERD (gastroesophageal reflux disease) Abdominal pain Change in bowel habits Bloating Postprandial epigastric pain Plan Discussed with patient avoiding dietary triggers. Continue omeprazole daily. Staying upright for minimal 3 hours after meals discussed with patient. Long discussion with patient about changing her diet habits. Low FODMAP diet discussed with patient. List of food recommended as well as list of food to avoid given to patient. Will check vitamin-D, B12, check her thyroid. Patient will be sent for upper GI with barium swallow. Patient was encouraged to take dicyclomine only as needed as this may cause her to become more constipated. Increase fluid intake and activity to promote better bowel motility. Follow-up in 3-4 months, sooner on as needed basis. Patient is agreeable to this plan and verbalizes understanding of instructions. She was given the opportunity to ask questions and all questions answered. Orders FL upper GI w Ba Swallow 04/03/25 K21.9 Vitamin D 25-OH (D2 and D3) 04/03/25 E55.9 Vitamin B12 and Folate 04/03/25 R19.7 TSH reflex Free T4 04/03/25 K59.00 Refilled dicyclomine 20 mg PO Q8-10H PRN 90 tabs 1RF abdominal pain 30 days TODAY'S VISIT: Patient is here today for follow-up. Patient reports that she has been feeling much better. Patient states that she changed her diet. Avoiding dietary triggers. We have discussed last visit low FODMAP diet which she has been following for the most part. Patient does admit that when she eats fast food live Hager she will have abdominal pain and cramping. For the most part patient reports that she has been doing well. Patient is worried that she might have SIBO as her father was diagnosed with that. Patient reports that she is moving her bowels without any issues. Denies dyspepsia, dysphagia or odynophagia. Denies melena, hematochezia, unintentional weight loss or ribbon like stools. Patient denies any other GI concerning symptoms. Patient is not taking PPI anymore. Symptoms of acid reflux are suppressed for the most part. Patient will still need to go for upper GI with barium swallow which is scheduled next month [facility] Medical History Skin lesion Upper respiratory tract infection History of gestational diabetes Surgical History History of foot surgery History of wisdom tooth extraction Family History Father Hypertension Mother In good health Maternal Grandfather Lung cancer Paternal Grandmother Ovarian cancer Diabetes Paternal Grandfather No problems noted. Maternal Grandmother Stroke Family/Other FH: mental illness Brother No problems noted. Brother No problems noted. Son No problems noted. Daughter No problems noted. Other Mental health problem Social History Housing: House Alcohol intake: never Patient Tobacco Use Status: Former Tobacco user Tobacco use type: Cigarette Cigarettes Per Day: 1 e-Cigarette/Vaping Use: Currently Using Second Hand Smoke Exposure: Yes Substance Use Type: Marijuana service: No Current occupational status: unemployed Cognitive needs: No Hearing needs: No Vision needs: No Review of Systems Const Denies weight gain and Denies weight loss ENT Reports no additional complaints, Denies dysphagia and Denies odynophagia Card Reports no additional complaints Resp Reports no additional complaints GI Denies abdominal pain, Denies belching, Denies melena, Denies bloating, Denies change in bowel habits, Denies dysphagia, Denies excessive flatus, Denies dyspepsia, Denies heartburn, Denies diarrhea, Denies loose stools, Denies nausea, Denies odynophagia and Denies vomiting Musc Reports no additional complaints Neuro Reports no additional complaints Psych Reports no additional complaints Endo Reports no additional complaints Physical Exam Vital Signs: Last Vital Signs Pulse 74 07/28/25 16:04 BP 116/70 07/28/25 16:04 Pulse Ox 99 07/28/25 16:04 Oxygen Delivery Method Room Air 07/28/25 16:04 BMI result Body Mass Index 22.3 Const General: healthy appearing, no acute distress and well developed Nutritional Appearance: well nourished Orientation/consciousness: patient oriented x3 Resp Effort & Inspection: normal respiratory effort, able to speak in complete sentences, no tracheal deviation and symmetric chest movement Auscultation: clear to auscultation bilaterally Cardio Rate: regular rate GI Inspection: Yes normal to inspection and No distended Palpation (GI): Soft to palpation, not firm, nontender and No hepatosplenomegaly present Auscultation: normal bowel sounds General: Yes no CVA tenderness Back/Spine/Pelvis Back: no CVA tenderness Skin General skin exam: elasticity normal, turgor normal and dry skin Neuro General: patient oriented x3 Psych Appearance: grossly normal Mental Status: mental status grossly normal Results Reviewed Results Reviewed: Laboratory Tests 04/03/25 16:02 Vitamin B12 486 25-OH Vitamin D Total 29 L Folate 14.1 TSH 1.08 Assessment & Plan Assessment & Plan (1) GERD (gastroesophageal reflux disease): Code(s): K21.9 - Gastro-esophageal reflux disease without esophagitis Category: Medical Qualifiers: Esophagitis presence: esophagitis presence not specified Qualified Code(s): K21.9 - Gastro-esophageal reflux disease without esophagitis (2) Lactose intolerance: Code(s): E73.9 - Lactose intolerance, unspecified Category: Medical (3) Change in bowel habits: Code(s): R19.4 - Change in bowel habit Category: Medical (4) Bloating: Comment: Resolved Code(s): R14.0 - Abdominal distension (gaseous) Category: Medical (5) Chronic RLQ pain: Comment: Intermittent, vague, right lower quadrant pain Code(s): R10.31 - Right lower quadrant pain; G89.29 - Other chronic pain Category: Medical (6) Abdominal pain: Code(s): R10.9 - Unspecified abdominal pain Category: Medical Qualifiers: Abdominal location: right lower quadrant Qualified Code(s): R10.31 - Right lower quadrant pain Plan Message sent to Raj HARDEN to schedule patient for SIBO testing. Discussed with patient the importance of following diet and making sure that she empties her bowels completely. Patient is doing well and she will not need to follow-up with us unless she will have recurrence of symptoms. We will call patient with the results of her upper GI series. If reflux seen patient will be advised to take PPI. Continue avoiding dietary triggers and late night snacking. Staying upright for minimum 3 hours after meals discussed with patient. Patient is agreeable to current plan of care and verbalizes understanding of instructions. He was given the opportunity to ask questions and all questions answered. Thank you for allowing me to participate in her care Coding Level of Care Code Est Pt Level 3 (71160) Diagnoses Gastroesophageal reflux disease, unspecified whether esophagitis present K21.9 Esophagitis presence: esophagitis presence not specified Lactose intolerance E73.9 Change in bowel habits R19.4 Bloating R14.0 Chronic RLQ pain R10.31; G89.29 Right lower quadrant abdominal pain R10.31 Abdominal location: right lower quadrant Time Spent (min) 30 Comment 20 minutes spent with patient and additional 10 minutes spent reviewing her records
--- OUTSIDE RECORDS SUMMARY | 2025-07-28 19:01 | XMS_ITS | Encounter Summary ---
Author Organization [facility] Address [address] [place] [address] Phone Care Team Providers Care Binder Coverstitch Name Role Phone Yesica Kowalski MD Primary Care Provider [phone] Encounter Details Date Type Department Care Team (Late st Contact Info) Description 06/21/2011 Documentation [facility] [place] [address] [place], [place] [id number] Family Medicine, Physician [address], [place] [address] Social History Tobacco Use Types Packs/Day Years [...] on filedocumented in this encounter Care Teams Binder Coverstitch Relationship Specialty Start Date End Date Yesica Kowalski MD [address] [facility] [place] [address] PCP - General 06/22/17 02/22/23 documented as of this encounter
--- OUTSIDE RECORDS SUMMARY | 2025-07-28 19:01 | XMS_ITS | Encounter Summary ---
Author Organization [facility] Address [address] [place] [address] Phone Care Team Providers Care Supervisor Yard Name Role Phone Yesica Kowalski MD Primary Care Provider [phone] Encounter Details Date Type Department Care Team (Late st Contact Info) Description 04/17/2012 [place]ation [facility] [place] [address] [place], [place] [id number] Family Medicine, Physician [address], [place] [address] Social History Tobacco Use Types Packs/Day Years [...] on filedocumented in this encounter Care Teams Supervisor Yard Relationship Specialty Start Date End Date Yesica Kowalski MD [address] [facility] [place] [address] PCP - General 06/22/17 02/22/23 documented as of this encounter
--- OUTSIDE RECORDS SUMMARY | 2025-07-28 19:01 | XMS_ITS | Encounter Summary ---
Author Organization [facility] Address [address] [place] [address] Phone Care Team Providers Care Senior Cytogenetics Laboratory Director Name Role Phone Yesica Kowalski MD Primary Care Provider [phone] Encounter Details Date Type Department Care Team (Late st Contact Info) Description 04/17/2012 Documentation [facility] [place] [address] [place], [place] [id number] Family Medicine, Physician [address], [place] [address] Social History Tobacco Use Types Packs/Day Years [...] filedocumented in this encounter Care Teams Senior Cytogenetics Laboratory Director Relationship Specialty Start Date End Date Yesica Kowalski MD [address] [place] [address] PCP - General 06/22/17 02/22/23 documented as of this encounter
--- OUTSIDE RECORDS SUMMARY | 2025-07-28 19:01 | XMS_ITS | Encounter Summary ---
Author Organization [facility] Address [address] [place] [address] Phone Care Team Providers Care Senior Risk Analyst Name Role Phone Yesica Kowalski MD Primary Care Provider [phone] Encounter Details Date Type Department Care Team (Late st Contact Info) Description 01/15/[address] [facility] [place] [address] [place], [place] [id number] Family Medicine, Physician [address], [place] [address] Social History Tobacco Use Types Packs/Day Years [...] filedocumented in this encounter Care Teams Senior Risk Analyst Relationship Specialty Start Date End Date Yesica Kowalski MD [address] [place] [address] PCP - General 06/22/17 02/22/23 documented as of this encounter
--- OUTSIDE RECORDS SUMMARY | 2025-07-28 19:01 | XMS_ITS | Clinical Summary ---
Author Organization [facility] Address [address] [place] [address] Phone Care Team Providers Care Promotions Representative Name Role Phone Unavailable Primary Care Provider [...] AM EDT Pulse - - Temperature 36.4 C (97.6 F) 07/05/2012 12:00 AM EDT Respiratory Rate - - Oxygen Saturation - [...] 06/12/1995, Additional history exists Influenza Vaccines (#1) 2025 COVID-19 Vaccine ( season) 2025 Hepatitis B Vaccines Completed 08/14/1994, 1993, 1993 [...] complete this topic Procedures * Due to [place] [employer] law, this organization might not be sharing sensitive test results. Procedure Name Priority Date/Time Associated Diagnosis Comments CHLAMYDIA AND GONORRHEA, AMPLIFIED Routine 07/16/2013 3:51 PM EDT from Last 3 Months or Most Recently Relevant to Health Maintenance Results * Due to [place] [employer] law, this organization might not be sharing sensitive test results. * Chlamydia and Gonorrhoea, Amplified (07/16/2013 3:51 PM EDT) URINE CHLAMYDIA AMP PROBE NEGATIVE [facility] Comment: NO CHLAMYDIA TRACHOMATIS RNA DETECTED IN THIS PATIENT'S SAMPLE. (REFERENCE RANGE/NORMAL VALUE: NOT DETECTED) URINE GC AMP PROBE NEGATIVE [facility] Comment: NO NEISSERIA GONORRHOEAE RNA DETECTED IN THIS PATIENT'S SAMPLE. (REFERENCE RANGE/NORMAL VALUE: NOT DETECTED) NOTE: THIS TEST USES TEXTILE CUTTING MACHINE OPERATOR-MEDIATED AMPLIFICATION METHOD TO DETECT rRNA FROM C.TRACHOMATIS [...] OF INFECTION. 07/16/2013 3:51 PM EDT Narrative [facility] - 07/16/2013 3:51 PM EDT URINE CHLAMYDIA GC AMP PROBE us Yesica Kowalski MD LAB MICROBIOLOGY - GENERAL ORD ERABLES Final Result [facility] [address] [place] [address], [place] from Last 3 Months or Most Recently Relevant to Health Maintenance
--- OUTSIDE RECORDS SUMMARY | 2025-07-28 19:01 | XMS_ITS | Encounter Summary ---
Author Organization [facility] Address [address] [place] [address] Phone Care Team Providers Care Advanced Manufacturing Technician Name Role Phone Yesica Kowalski MD Primary Care Provider [phone] Encounter Details Date Type Department Care Team (Late st Contact Info) Description 04/17/2011 Documentation [facility] [place] [address] [place], [place] [phone] Family Medicine, Physician [address], [place] [address] Social History Tobacco Use Types Packs/Day Years [...] on filedocumented in this encounter Care Teams Advanced Manufacturing Technician Relationship Specialty Start Date End Date Yesica Kowalski MD [address] [facility] [place] [address] PCP - General 06/22/17 02/22/23 documented as of this encounter
--- OUTSIDE RECORDS SUMMARY | 2025-07-28 19:01 | XMS_ITS | Encounter Summary ---
Author Organization [facility] Address [address] [place] [address] Phone Care Team Providers Care Health And Wellness Instructor Name Role Phone Yesica Kowalski MD Primary Care Provider [phone] Encounter Details Date Type Department Care Team (Late st Contact Info) Description 04/26/2012 Documentation [facility] [place] [address] [place], [place] [phone] Family Medicine, Physician [address], [place] [address] Social History Tobacco Use Types Packs/Day Years [...] on filedocumented in this encounter Care Teams Health And Wellness Instructor Relationship Specialty Start Date End Date Yesica Kowalski MD [address] [place] [address] PCP - General 06/22/17 02/22/23 documented as of this encounter
--- OUTSIDE RECORDS SUMMARY | 2025-07-28 19:02 | XMS_ITS | Clinical Summary ---
Author Organization [facility] Address [address] [place] [address] [place] [address] Phone Care Team Providers Care Dramatic Director Name Role Phone Stephanie Freedman MD Primary Care Provid er Allergies No known active allergies Medications dicyclomine (BENTYL) 20 mg tablet Take 20 mg by mouth every 6 (six) hours. 4 Active betamethasone valerate 0.1 % ointment Apply topically 2 (two) times a day. 15 g 3 4 Active Social History Tobacco Use Types Packs/Day Years Used Date Smoking Tobacco: Never Smokeless Tobacco: Never Tobacco Cessation:Counseling Given: Not Answered Alcohol Use Standard Drinks/Week Comments Never 0 (1 standard drink = 0.6 oz pur e alcohol) Education Answer Date Recorded Are you interested in more education? Not on enid e 03/09/2023 Are you concerned about learning? Not on file 03/09/2023 No 03/09/2023 No 03/09/2023 Digital Access Answer Date Recorded No 04/09/2023 No 04/09/2023 Reliable internet access at home? Not on file 04/09/2023 Device with a working camera? Not on file Comments Unknown Sex and Gender Information Value Date Recorded Sex Assigned at Female 05/09/2024 2:00 PM EDT Legal Sex Female 6:56 PM EST Gender Identity Female 05/09/2024 2:00 PM EDT Sexual Orientation Straight 05/09/2024 2: 00 PM EDT Plan of Treatment Health Maintenance Due Date Last Done Comments DEPRESSION SCREENING 2005 HEPATITIS C SCREENING 2011 HIV ONE-TIME SCREENING (18-6 5 YEARS) 2011 PAP SMEAR 2014 INFLUENZA VACCINE (#1) 2025 8, 11/23/2016 COVID-19 VACCINE (3 - 2024-2 6 season) 2025 02/21/2021, 01/24/2021 Adult Td,Tdap Booster 12/25/2028 12/25/2018 , 01/04/2017, 11/13/2008 SMOKING STATUS SCREENING (On ce After 26 Yrs) Completed 08/29/2024 HEPATITIS A VACCINES Aged Out No long er eligible based on patient's age to complete this topic HIB VACCINES Aged Out No longer eligi ble based on patient's age to complete this topic MENINGOCOCCAL VACCINES (ACWY) Aged Out No longer eligible based on patient's age to complete this topic MENINGOCOCCAL VACCINES (B) Aged Out N o longer eligible based on patient's age to complete this topic PNEUMOCOCCAL VACCINES (0-49 years) Aged Out No longer eligible b ased on patient's age to complete this topic Medical Devices Not on file Insurance [facility] Theodore KRUEGER [address] Care Teams Dramatic Director Relationship Specialty Start Date End Date Stephanie Freedman MD [address] [place] [address] PCP - General Internal Medicine 05/09/24 Additional Source Comments The information contained in this document represents components of the legal health record. It is not the complete legal health record.[facility]
--- OUTSIDE RECORDS SUMMARY | 2025-07-28 19:02 | XMS_ITS | Encounter Summary ---
Author Organization [facility] Address [address] [place] [address] Phone Care Team Providers Care Aviation Neuropsychologist Name Role Phone Yesica Kowalski MD Primary Care Provider [phone] Encounter Details Date Type Department Care Team (Late st Contact Info) Description 08/08/2017 Conversion Encounter [facility] [place] [address] [place] [address] Social History Tobacco Use Types Packs/Day Years [...] on filedocumented in this encounter Care Teams Aviation Neuropsychologist Relationship Specialty Start Date End Date Yesica Kowalski MD [address] [place] [address] PCP - General 06/22/17 02/22/23 documented as of this encounter
== END 2025-07-28 17:00 | disposition home or self-care (01) ==
LOC: HO.HGI 16:04
PROVIDERS: PCP Internal Medicine; Visit Provider Nurse Practitioner Family
DX: K21.9 Gastro-esophageal reflux disease without esophagitis (principal); E73.9 Lactose intolerance, unspecified; R19.4 Change in bowel habit; R14.0 Abdominal distension (gaseous); R10.31 Right lower quadrant pain; G89.29 Other chronic pain
CPT/HCPCS: 99213

== ENCOUNTER 2025-08-19 09:26 | Outpatient (REF) | payer BC, SELFPAY | END 2025-08-19 09:27 | disposition home or self-care (01) | LOC: HO.XRAY 09:26 | PROVIDERS: PCP Internal Medicine; Visit Provider Nurse Practitioner Family | DX: Z13.89 Encounter for screening for other disorder (principal) ==

== ENCOUNTER 2025-09-28 08:00 | Outpatient (REF) | payer BC, SELFPAY ==
--- NOTE | ~2025-09-28 | FL_ITS ---
EXAMINATION: XR FLUOROSCOPY UPPER GI SERIES CLINICAL INFORMATION: GERD type symptoms COMPARISON: None TECHNIQUE: Fluoroscopic air contrast upper GI examination was performed utilizing standard techniques with thin and thick barium and effervescent granules. Numerous spot images were obtained. Several fluoroscopic image hold cine sequences were also obtained. FINDINGS: UPPER GI SERIES: Lateral cine images of the oropharynx and hypopharynx demonstrate normal swallow mechanism with normal epiglottic inversion and soft palate elevation. No laryngeal penetration, glottic or subglottic aspiration identified. Hypopharyngeal structures appear normal without evidence of mass or diverticulum. There was no significant cricopharyngeal achalasia. Dual and single contrast images of the esophagus demonstrate normal caliber, contour, and mucosal pattern. No evidence of stricture, mass, or ulcerations identified. Esophageal peristalsis was minimally disordered. There is a tiny type I hiatus hernia present. No significant gastroesophageal reflux was seen during the course of the examination. Dual contrast and single contrast images of the stomach demonstrated normal contour. No mass, or large ulceration present. Normal gastric rugal folds. There is diffuse prominence of the areae gastricae. There are numerous tiny foci of contrast pooling in the fundus and body of the stomach, in keeping with small submucosal ulcerations likely on the basis of erosive gastropathy. Contrast freely passed into the gastric antrum and duodenal bulb without delay. Single and air-contrast images of the duodenal bulb demonstrate no abnormality. The duodenal sweep has a normal appearance, course, and mucosal fold appearance. FLUOROSCOPY TIME: 2 minutes, 40 seconds Number of Spot Images:11 Number of cines obtained: 7 DOSE AREA PRODUCT: [id number] uGy-m2 (microgray-meter squared) FL/FL upper GI w air w Ba Swallow IMPRESSION: 1. Minimally disordered esophageal peristalsis. 2. Tiny type I hiatal is hernia. 3. No definite gastroesophageal reflux observed during the course of the examination. 4. Findings in the stomach suggestive of gastritis. Electronically signed by: Brennen Eric MD 09/28/2025 10:25 AM PAR[facility]
--- OUTSIDE RECORDS SUMMARY | 2025-09-28 09:29 | XMS_ITS | Data Portability ---
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; Note: Date Diagnosed : 08/12/2021 11:29 AM (J38.2) Not Available [facility] 4 02:40:00 Jaw pain 603359275 Active 2021 Jaw pain; Note: Date Diagnosed : 2 10:34 AM (R68.84) Not Available [facility] 4 02:40:01 Impacted cerumen of bilateral ears 55863404535 12088 Active 2021 Impacted cerumen, bilateral ; Note: Date Diagnosed : 2 10:34 AM (H61.23) Not Available [facility] 4 02:40:05 Bilateral referred otalgia of ears 10997785327 95185 Active 2023 KOSTA NANCE MD [address] [place] [address], [phone] , [facility] 4 15:10:39 Problem Notes None recorded. Procedures Surgical History Date Name Laterality Status Provider Name and Address Organization Details Recorded Time 04/17/2024 Wax_DP completed KOSTA NANCE MD [address] [place] [address], [phone], [facility] 04/17/2024 15:10:59 Imaging Results None recorded. Procedure Notes None recorded. Medical Equipment None [...] Updated DateTime 04/17/2024 154.94 cm 21.7 kg/m2 02021.12 g Amee Yan [place] [facility] 04/17/2024 16:38:06 Social History None recorded. Functional Status None recorded. Mental Status None recorded. Family History Nothing Reported. Medical History No medical history recorded. Gynecological HistoryNo gynecological history recorded. Obstetrics History GPAL:G 0 P 0 0 0 0 Past Encounters Encounter ID Performer Location Encounter Start Date Encounter Closed Date Diagnosis/Indication Diagnosis SNOMED-CT Code Diagnosis ICD10 Code Diagnosis IMO Codes Diagnosis Note [id number] KOSTA NANCE MD [facility] [address] [place] [address] 04/17/2024 15:47:51 04/18/2024 08:52:36 Impacted cerumen of bilateral ears 5763448892 186176 H61.23 Bilateral referred otalgia of ears 0368386742 074053 H92.03 Health Concerns Section Related Observation LastModified by Organization Detai ls LastModified Time None Recorded Concern Status LastModified by Organization Details LastModified Time None Recorded Advance Directives Directive None Recorded Payers Insurance Date Sequence Insurance Name Policy Number Policy Gibson Covered Member ID Gibson Member ID Guarantor Name 04/17/[address] [place] [address] [id number] Sierra Hernández [id number] Sierra Hernández Notes Date Note Type Note Provider Name and Address Organization Details Recorded Time text/html ROS as noted in the HPI otalgiaaround 01/2024 developed foul smelling right sided otorrhea and itchyurgent visit x 5 with rx 4 different PO abx and 2 topical drops.felt decreased hearing on right and left03/27/2024 - Temporal bone ct [place] [facility] - under developed right mastoid. right prussak soft tissue and blunt scutum cannot r/o cholesteatomahearing improved with flush in ER KOSTA NANCE MD [address] [place] [address], [place], [phone], [facility] - [facility] 04/17/2024 17:06:45 OBGyn Episode No OBEpisode recorded.
== END 2025-09-28 08:01 | disposition home or self-care (01) ==
LOC: HO.XRAY 08:00
PROVIDERS: PCP Internal Medicine; Visit Provider Nurse Practitioner Family
DX: K21.9 Gastro-esophageal reflux disease without esophagitis (principal)
CPT/HCPCS: 74246

== ENCOUNTER → 2025-09-28 08:02 | Outpatient (BNV) | payer BC, SELFPAY | PROVIDERS: PCP Internal Medicine; Visit Provider Radiology Diagnostic Radiology | DX: K44.9 Diaphragmatic hernia without obstruction or gangrene (principal) | CPT/HCPCS: 74246 ==